=== PATIENT | female | born 1975 | race Caucasian/White ===

== ENCOUNTER → 2016-08-01 | Outpatient (CLI) | payer BC ==
[~2016-08-01] MED LIST: ACET1TAB43 PO; ACHD5005 PO; DOCU100C37 PO; FERR-74 PO; HYDR-3714 PO; IBP600T1 PO; IBUP-1773 PO; OMEP-10 PO; OMEP20CA12 PO; ONDA8TAB6 PO; OXYC-12 PO; PHEN37.555 PO; PRCD5U PO; PREN1TAB39 PO
--- OUTSIDE RECORDS SUMMARY | 2016-08-01 14:48 | XMS REPORT | Continuity of Care Document ---
Author Author [facility] Organization [facility] Address Unknown Phone Unavailable Care Team Providers Care Tobacco Scrap Sifter Name Role Phone Nubia Wong PCP [phone] Source Comments Some departments are not documenting in the electronic medical record. If you do not see the information that you expected, contact Release of Information in the Health Information Management department at [phone] for further assistance in locating additional records.[facility] Active Allergies and Adverse Reactions No Known Allergies Current Medications Prescription Sig. Disp. Refills Start End Date Status Date HYDROcodone-ibuprofen Take 1 Tab by mouth every Active (VICOPROFEN) 7.5-200 mg 6 hours as needed for tablet Pain phentermine(+) 37.5 mg Take 37.5 mg by mouth Active tablet every morning. Take 1/2 daily amoxicillin (AMOXIL) 500 Take 500 mg by mouth four Active mg capsule times daily. pregabalin (LYRICA) 50 mg start one tab po qhs x 1 60 Cap 1 10/07/19 Active capsule week, then up to one tab 16 po bid Indications: FIBROMYALGIA Active Problems Problem Noted Date Fibromyalgia 10/07/2015 Malaise and fatigue 10/07/2015 Pain in joint, multiple sites 10/07/2015 Social History Tobacco Use Types Packs/Day Years Used Date Never Smoker Smokeless Tobacco: Never Used Tobacco Cessation: Counseling Given: No Comments: Alcohol Use Drinks/Week oz/Week Comments No 0 Standard 0.0 drinks or equivalent Last Filed Vital Signs Vital Sign Reading Time Taken Blood Pressure 137/97 10/07/2015 3:14 PM CDT Pulse 71 10/07/2015 3:14 PM CDT Temperature 36.7 C (98 F) 10/07/2015 1:25 PM CDT Respiratory Rate 20 10/07/2015 3:14 PM CDT Height 1.753 m (5' 9.02") 10/07/2015 3:14 PM CDT Weight 79.379 kg (175 lb) 10/07/2015 3:14 PM CDT Body Mass Index 25.83 10/07/2015 3:14 PM CDT Oxygen Saturation 100% 10/07/2015 3:14 PM CDT Plan of Care Health Maintenance Due Date Last Done Comments Physical (Comprehensive) 1982 Exam Pertussis Vaccine 1986 Tetanus Vaccine 1992 Cervical Cancer Screening 1996 Influenza Vaccine 01/14/2016 Results from Last 3 Months Not on file
--- NOTE | 2016-08-01 18:29 | Diagnostic Imaging Report ---
OB ultrasound. INDICATION: survey. FINDINGS: There is a single intrauterine . The heart rate is 144 bpm. The amniotic fluid index is 13.2 cm. The placenta is fundal. There is no placenta previa. The cisterna magna and posterior fossa appear grossly unremarkable. There is no ventriculomegaly seen. The stomach is seen and the kidneys demonstrate no hydronephrosis. The four-chamber view is not well seen due to position. The cord insertion is also not seen due to position. The urinary bladder appears unremarkable. There is suggestion of two umbilical arteries which would correlate with three-vessel cord. The spine appears grossly unremarkable. The growth parameters are from all around 35 weeks and 4 days, which is consistent with a gestational age of 35 weeks and 2 days based on provided KHUSHI of 09/03/2016. We do not have prior comparison exams during this on our system for correlation. IMPRESSION: Live intrauterine . The four-chamber view and the cord insertion are not well seen due to advanced age and position. A short-term followup study could be considered to attempt reevaluation. Dictated by: Dictated on workstation # [id number]
== END ==
LOC: RAD 14:44
PROVIDERS: ATTEND Obstetrics & Gynecology
DX: O09.522 Supervision of elderly multigravida, second trimester (principal); Z3A.35 35 weeks gestation of pregnancy
CPT/HCPCS: 76805

== ENCOUNTER 2016-08-15 10:46 | Outpatient (RCR) | payer BC ==
[~2016-08-15 10:46] MED LIST changes: -ACET1TAB43 PO; -DOCU100C37 PO; -FERR-74 PO
--- NOTE | 2016-08-15 12:11 | Diagnostic Imaging Report ---
Ultrasound biophysical profile. INDICATION: Multigravida. The previous OB ultrasound exam of 08/01/2016, noted a single live fetus approximately 35 weeks 2 days gestation. On this exam the fetus is again visualized. The fetus is cephalic in presentation. heart motion was noted, and a rate of 163 bpm was recorded. The biophysical profile score is 8/8 and within normal limits. On the prior exam the amniotic fluid index was 13.2. On this study the SUSI is now 7.4 (normal 8 to 22.) The reason for the borderline oligohydramnios is not certain. IMPRESSION: 1. There is a single live near-term fetus in cephalic presentation. 2. The biophysical profile score is 8 out of 8. There is borderline oligohydramnios. Dictated by: Dictated on workstation # [id number]
[2016-08-23] MEDS ORDERED: FERR-74 PO (15:29)
[2016-08-23] MEDS ORDERED: IBUP-1773 PO (15:29)
[2016-08-23] MEDS ORDERED: ACET1TAB43 PO (15:29)
[2016-08-23] MEDS ORDERED: DOCU100C37 PO (15:29)
== END 2016-11-13 | disposition home or self-care (01) ==
LOC: RAD 10:46
PROVIDERS: ATTEND Obstetrics & Gynecology
DX: O09.523 Supervision of elderly multigravida, third trimester (principal); O47.03 False labor before 37 completed weeks of gestation, third trimester; Z3A.35 35 weeks gestation of pregnancy
CPT/HCPCS: 76819

== ENCOUNTER 2016-08-23 05:58 | Inpatient (IN) | payer BC ==
[2016-08-23] VITALS (43 sets, daily range): BP systolic 102–176; BP diastolic 67–115
[~2016-08-23] VITALS: Ht 175.3 cm; Wt 92.1 kg
[2016-08-23] MEDS ORDERED: D5 LR IV SOLUTION 1,000 ML IV ONE ×2 (06:05→19:43)
[2016-08-23] MEDS ORDERED: NS IV 1000 ML 1,000 ML IV SCH ×2 (06:25→07:25)
[2016-08-23] MEDS ORDERED: LIDOCAINE/EPI 1%-1:200,000 (XYLOCAINE) 30 ML VIAL INJ PRN (06:30)
[2016-08-23] MEDS ORDERED: MINERAL OIL CONCENTRATE 99.9% 15 ML UDC TOP PRN (06:30)
[2016-08-23] MEDS: D5 LR IV SOLUTION 1,000 ML IV SCH ×3 (06:35→20:00)
[2016-08-23] MEDS ORDERED: MISOPROSTOL 100 MCG (CYTOTEC) TAB PO ONE (06:45)
[2016-08-23 06:59] LABS: BASOPHILS % (AUTO) 0 % (0-10); EOSINOPHILS # (AUTO) 0.1 10^3/uL (0.0-0.3); EOSINOPHILS % (AUTO) 1 % (0-10); LYMPHOCYTES # (AUTO) 3.7 X 10^3 (1.0-4.0); LYMPHOCYTES % (AUTO) 31 % (12-44); MEAN CORPUSCULAR HEMOGLOBIN 28 PG (25-34); MEAN CORPUSCULAR HGB CONC 33 G/DL (32-36); MEAN CORPUSCULAR VOLUME 86 FL (80-99); MEAN PLATELET VOLUME 9.5 FL (7.4-10.4); MONOCYTES # (AUTO) 1.5 X 10^3 (0.0-1.0); MONOCYTES % (AUTO) 12 % (0-12); NEUTROPHILS # (AUTO) 6.7 X 10^3 (1.8-7.8); NEUTROPHILS % (AUTO) 56 % (42-75); PLATELET COUNT 339 10^3/uL (130-400); RED BLOOD COUNT 3.74 10^6/uL (4.35-5.85); RED CELL DISTRIBUTION WIDTH 13.1 % (10.0-14.5)
[2016-08-23 07:49] LABS: BILIRUBIN,URINE NEGATIVE (NEGATIVE); KETONES,URINE NEGATIVE (NEGATIVE); LEUKOCYTE ESTERASE ,URINE 1+ (NEGATIVE); NITRITE,URINE NEGATIVE (NEGATIVE); PH,URINE 7 (5-9); PROTEIN,URINE NEGATIVE (NEGATIVE); UROBILINOGEN,URINE NORMAL (NORMAL)
[2016-08-23 08:03] LABS: SQUAMOUS EPITHELIAL CELL,UR 25-50 /HPF
[2016-08-23] MEDS ORDERED: SUFENTA 0.6MCG/ML BUPIVA 0.125 100 ML ONE (09:31)
[2016-08-23] MEDS ORDERED: BUPIVACAINE 0.25% 30 ML (SENSORCAINE) VIAL ONE (10:05)
[2016-08-23] MEDS ORDERED: fentaNYL INJECTION 100 MCG/2 ML AMP ONE (10:05)
[2016-08-23] MEDS ORDERED: LACTATED RINGERS 1,000 ML IV SCH (11:25)
[2016-08-23] MEDS ORDERED: METOCLOPRAMIDE INJ 10 MG/2 ML (REGLAN) IV PRN (11:30)
[2016-08-23] MEDS ORDERED: ONDANSETRON 4 MG/2 ML (SDV) Z0FRAN IV PRN (11:30)
[2016-08-23] MEDS ORDERED: diphenhydrAMINE 50 MG/ML INJ (BENADRYL) IV PRN (11:30)
[2016-08-23] MEDS ORDERED: NALOXONE 0.4 MG/ML 1 ML (NARCAN) VIAL IV PRN ×2 (11:30)
[2016-08-23] MEDS ORDERED: EPIDURAL (SUFENTA 0.6MCG/ML BUPIVA 0.125%) 100 ML BAG EPI PRN (11:30)
[2016-08-23] MEDS ORDERED: OXYTOCIN/NORMAL SALINE 500 ML IV SCH ×2 (11:49→15:09)
[2016-08-23] MEDS ORDERED: CATHETER FLUSH 10 ML SYR IV SCH ×2 (14:00→22:00)
[2016-08-23] MEDS ORDERED: MEASLES,MUMPS,RUBELLA 1 EA INJ SQ ONE (15:15)
[2016-08-23] MEDS ORDERED: WITCH HAZEL(TUCKS) 40 EA JAR TOP PRN (15:15)
[2016-08-23] MEDS ORDERED: TETANUS,DIPTH,PERTUSS P/F (BOOSTRIX) 0.5 ML VIAL IM ONE (15:15)
[2016-08-23] MEDS ORDERED: BENZOCAINE/MENTHOL (DERMOPLAST) 56 ML CAN TP PRN (15:15)
[2016-08-23] MEDS ORDERED: DIBUCAINE (NUPERCAINAL) 1% OINT 30 GM TOP PRN (15:15)
--- NOTE | 2016-08-23 15:19 | OB Labor & Delivery Record ---
Vag Delivery Note Vag Delivery Note Date of Delivery: 08/23/16 Preoperative Diagnosis: Mildred Avalos is a 41 /Para 3/2 ,Gestational Age38 3/7 weeks, PUPPPS, Advanced maternal age, oligohydramnios, gestational hypertension Postoperative Diagnosis: Same Surgeon: CHECO FRAGOSO Assistant Editor: Nena López MS IV Anesthesia: epidural Delivery Type: vaginal Findings: Viable male , apgars 8/9, weight 7#8oz Lacerations: Intact placenta with 3 vessel cord. No nuchal cord, body cord or shoulder dystocia Estimated Blood Loss: 200 ml Complications: None Condition: Stable Description of Procedure: The patient is a 41 /Para 3/2 ,Gestational Age38 3/7 weeks, PUPPPS, Advanced maternal age, oligohydramnios, gestational hypertension. She was admitted and informed consent was obtained. Her labor course was remarkable for misoprostol cervical ripening, AROM, epidural and oxytocin augmentation. She progressed to complete dilatation and began to push. She was then set up for delivery. The 's head was delivered atraumatically in the KENYATTA position. The shoulders and remainder of the infant's body were then delivered without difficulty. Upon delivery, the head was held below the level of the perineum and the mouth and nares were bulb suctioned. The cord was doubly clamped and cut and the infant was handed off to the pediatric staff. An intact placenta with 3-vessel cord delivered and there was found to be minimal bleeding.~ Vigorous fundal massage was performed and the fundus was found to be firm. IV oxytocin was given. Examination of the vagina and perineum revealed a 1st deg laceration not repaired. Following the repair, sponge, instrument and needle counts were correct. Mom and baby were both in stable condition in the labor suite. Vitals - Labs Vital Signs - I&O Vital Signs Date Time Temp Pulse Resp B/P (MAP) Pulse Ox O2 Delivery O2 Flow Rate FiO2 08/23/16 13:53 101 18 139/78 Room Air 08/23/16 13:40 90 18 123/75 Room Air 08/23/16 13:25 96 18 130/74 Room Air 08/23/16 13:15 88 18 132/77 Room Air 08/23/16 12:52 92 18 122/79 Room Air 08/23/16 12:40 93 18 121/74 Room Air 08/23/16 12:30 97.2 08/23/16 12:22 105 18 132/79 99 Room Air 08/23/16 12:08 100 18 131/79 99 Room Air 08/23/16 11:38 92 18 128/69 98 Room Air 08/23/16 11:22 96 18 123/69 98 Room Air 08/23/16 11:00 106 18 132/75 98 Room Air 08/23/16 10:53 105 18 131/76 98 Room Air 08/23/16 10:48 102 18 125/74 98 Room Air 08/23/16 10:45 106 18 136/84 97 Room Air 08/23/16 10:33 115 18 138/83 97 Room Air 08/23/16 10:30 99.2 100 18 135/84 Room Air 08/23/16 10:27 91 18 138/88 99 Room Air 08/23/16 10:22 93 18 151/89 98 Room Air 08/23/16 10:18 84 18 156/96 99 Room Air 08/23/16 10:15 88 18 176/101 Room Air 08/23/16 10:00 08/23/16 09:30 78 18 167/97 Room Air 08/23/16 09:00 08/23/16 08:30 76 18 141/85 08/23/16 07:31 99.0 90 18 160/90 Room Air 08/23/16 06:06 90 18 136/87 Room Air Labs Laboratory Tests 08/23/16 06:00: Urine Color YELLOW, Urine Clarity CLEAR, Urine pH 7, Urine Specific [place] 1.015L, Urine Protein NEGATIVE, Urine Glucose (UA) NEGATIVE, Urine Ketones NEGATIVE, Urine Nitrite NEGATIVE, Urine Bilirubin NEGATIVE, Urine Urobilinogen NORMAL, Urine Leukocyte Esterase 1+H, Urine RBC (Auto) 1+H, Urine RBC 5-10H, Urine WBC 2-5, Urine Squamous Epithelial Cells 25-50H, Urine Crystals PRESENTH, Urine Amorphous Sediment RARE NANCY PHOSPHATEH, Urine Bacteria MODERATEH, Urine Casts NONE, Urine Mucus SMALLH, Urine Culture Indicated NO 08/23/16 06:50: White Blood Count 12.0H, Red Blood Count 3.74L, Hemoglobin 10.6L, Hematocrit 32L , Mean Corpuscular Volume 86, Mean Corpuscular Hemoglobin 28, Mean Corpuscular Hemoglobin Concent 33, Red Cell Distribution Width 13.1, Platelet Count 339, Mean Platelet Volume 9.5, Neutrophils (%) (Auto) 56, Lymphocytes (%) (Auto) 31, Monocytes (%) (Auto) 12, Eosinophils (%) (Auto) 1, Basophils (%) (Auto) 0, Neutrophils # (Auto) 6.7, Lymphocytes # (Auto) 3.7, Monocytes # (Auto) 1.5H, Eosinophils # (Auto) 0.1, Basophils # (Auto) 0.0 CHECO FRAGOSO DO Aug 23, 2016 15:19
[2016-08-23] MEDS ORDERED: ACET1TAB43 PO ×2 (15:29)
[2016-08-23] MEDS ORDERED: DOCU100C37 PO ×2 (15:29)
[2016-08-23] MEDS ORDERED: IBUP-1773 PO ×2 (15:29)
[2016-08-23] MEDS ORDERED: FERR-74 PO ×2 (15:29)
--- NOTE | 2016-08-23 15:32 | Discharge Inst-Women's Service ---
Discharge Inst-Women's Serv Depart Medication/Instructions New, Converted or Re-Newed RX: RX on Chart Final Diagnosis PUPPPS Mild oligohydramnios Advanced maternal age induction Epidural Vaginal delivery iron deficiency anemia Consults/Follow Up Additional Follow Up: Yes (2 weeks and 6 weeks) Activity Activity: Activity as Tolerated Driving Instructions: You May Drive NO SMOKING: NO SMOKING Nothing Inside Vagina: No Douching, No [place], No Tampons Diet Discharge Diet: No Restrictions Symptoms to Report to : Swelling Increased, Bleeding Excessive, Pain Increased, Fever Over 101 Degrees F, Vaginal Bleeding Increase, Vaginal Discharge Foul For Any Problems or Questions: Contact Your Physician CHECO FRAGOSO DO Aug 23, 2016 15:32
[2016-08-23] MEDS: IBUPROFEN 600 MG (MOTRIN) TAB PO SCH (15:50)
[2016-08-23] MEDS ORDERED: diphenhydrAMINE 25 MG TAB (BENADRYL) PO PRN (17:00)
[2016-08-23] MEDS ORDERED: MISOPROSTOL 200 MCG (CYTOTEC) TABLET ONE (18:20)
[2016-08-23] MEDS ORDERED: MISOPROSTOL 200 MCG (CYTOTEC) TABLET PR NR (18:30)
[2016-08-23] MEDS ORDERED: NS IV 1000 ML 1,000 ML ONE (18:33)
[2016-08-23 18:49] LABS: MEAN PLATELET VOLUME 10.1 FL (7.4-10.4); RED BLOOD COUNT 3.08 10^6/uL (4.35-5.85); RED CELL DISTRIBUTION WIDTH 12.9 % (10.0-14.5); WHITE BLOOD COUNT 22.7 10^3/uL (4.3-11.0)
[2016-08-23 18:58] LABS: INR 1.1 (0.8-1.4); PROTHROMBIN TIME PATIENT 14.1 SEC (12.2-14.7)
[2016-08-23] MEDS ORDERED: hydrOXYzine (ATARAX) 10 MG TAB PO PRN (19:00)
--- NOTE | 2016-08-23 19:01 | Inpatient Code Blue ---
General Stated Complaint: INDUCTION Source: patient, RN/MD Exam Limitations: no limitations History of Present Illness Time seen by provider: 18:40 Initial Comments called emergently to room 312 for CODE BLUE. On my arrival. Patient was breathing and awake. Nurse describes episode where patient became very weak and then apparently passed out and had a seizure. There is concerns about breathing and vital signs and code was called. Patient had delivered via vaginal delivery 3 hours prior. She had approximately 300 mL blood loss per report during delivery +1100 mL blood loss after delivery. Apparently the uterus was very boggy and Cytotec was given rectally. Onset of symptoms when she was trying to sit up to be cleaned with nursing assistance. Patient was laid back down in the bed and there is no injury noted or reported. Currently patient is improving rapidly. Her primary care physician, Dr. Fragoso is in route. Allergies and Home Medications Allergies Coded Allergies: No Known Drug Allergies (Unverified , 06/20/10) Home Medications Acetaminophen with Codeine 1 Each Tablet, 1-2 TAB PO Q4H PRN for PAIN-MODERATE, #20 Prescribed by: CHECO FRAGOSO on 08/23/16 1529 Docusate Sodium 100 Mg Capsule, 100 MG PO BID, #60 Prescribed by: CHECO FRAGOSO on 08/23/16 1529 Ferrous Sulfate 325 Mg Tablet, 325 MG PO DAILY, #60 Prescribed by: CHECO FRAGOSO on 08/23/16 1529 Ibuprofen 600 Mg Tablet, 600 MG PO Q6H, #40 Prescribed by: CHECO FRAGOSO on 08/23/16 1529 Physical Exam Vital Signs Vital Sign - Last 12Hours 08/23/16 08/23/16 08/23/16 06:06 07:31 10:18 Temp 99.0 Pulse 90 Resp 18 B/P (MAP) 136/87 Pulse Ox 99 O2 Delivery Room Air Capillary Refill : General Appearance: WD/WN, no apparent distress Respiratory: lungs clear, normal breath sounds Cardiovascular: no murmur, tachycardia Gastrointestinal: soft, other (uterus noted to be firm.) Genital/Rectal: other (Robins catheter in place. No significant vaginal bleeding currently.) Neurologic/Psychiatric: alert, oriented x 3, other (rapidly improving mentation ) Skin: normal color, warm/dry Progress/Results/Core Measures Results/Orders Lab Results Laboratory Tests Test 08/23/16 06:00 08/23/16 06:50 08/23/16 18:41 Range/Units Urine Color YELLOW Urine Clarity CLEAR Urine pH 7 5-9 Urine Specific [place] 1.015 L 1.016-1.022 Urine Protein NEGATIVE NEGATIVE Urine Glucose (UA) NEGATIVE NEGATIVE Urine Ketones NEGATIVE NEGATIVE Urine Nitrite NEGATIVE NEGATIVE Urine Bilirubin NEGATIVE NEGATIVE Urine Urobilinogen NORMAL NORMAL MG/DL Urine Leukocyte Esterase 1+ H NEGATIVE Urine RBC (Auto) 1+ H NEGATIVE Urine RBC 5-10 H /HPF Urine WBC 2-5 /HPF Urine Squamous Epithelial Cells 25-50 H /HPF Urine Crystals PRESENT H /LPF Urine Amorphous Sediment RARE NANCY PHOSPHATE H /LPF Urine Bacteria MODERATE H /HPF Urine Casts NONE /LPF Urine Mucus SMALL H /LPF Urine Culture Indicated NO White Blood Count 12.0 H 22.7 H 4.3-11.0 10^3/uL Red Blood Count 3.74 L 3.08 L 4.35-5.85 10^6/uL Hemoglobin 10.6 L 8.8 L 11.5-16.0 G/DL Hematocrit 32 L 27 L 35-52 % Mean Corpuscular Volume 86 87 80-99 FL Mean Corpuscular Hemoglobin 28 29 25-34 PG Mean Corpuscular Hemoglobin Concent 33 33 32-36 G/DL Red Cell Distribution Width 13.1 12.9 10.0-14.5 % Platelet Count 339 330 130-400 10^3/uL Mean Platelet Volume 9.5 10.1 7.4-10.4 FL Neutrophils (%) (Auto) 56 42-75 % Lymphocytes (%) (Auto) 31 12-44 % Monocytes (%) (Auto) 12 0-12 % Eosinophils (%) (Auto) 1 0-10 % Basophils (%) (Auto) 0 0-10 % Neutrophils # (Auto) 6.7 1.8-7.8 X 10^3 Lymphocytes # (Auto) 3.7 1.0-4.0 X 10^3 Monocytes # (Auto) 1.5 H 0.0-1.0 X 10^3 Eosinophils # (Auto) 0.1 0.0-0.3 10^3/uL Basophils # (Auto) 0.0 0.0-0.1 10^3/uL Medications Given in ED Current Medications Medications Dose Ordered Sig/Aj Route Start Time Stop Time Status Last Admin Dose Admin Diphenhydramine HCl 25 mg Q6H PRN PO 08/23/16 17:00 08/23/16 17:10 25 MG Vital Signs/I&O Vital Sign - Last 12Hours 08/23/16 08/23/16 08/23/16 08/23/16 06:06 07:31 08:30 09:00 Temp 99.0 Pulse 90 90 76 Resp 18 18 18 B/P (MAP) 136/87 160/90 141/85 O2 Delivery Room Air Room Air 08/23/16 08/23/16 08/23/16 08/23/16 09:30 10:00 10:15 10:18 Pulse 78 88 84 Resp 18 18 18 B/P (MAP) 167/97 176/101 156/96 Pulse Ox 99 O2 Delivery Room Air Room Air Room Air 08/23/16 08/23/16 08/23/16 08/23/16 10:22 10:27 10:30 10:33 Temp 99.2 Pulse 93 91 100 115 Resp 18 18 18 18 B/P (MAP) 151/89 138/88 135/84 138/83 Pulse Ox 98 99 97 O2 Delivery Room Air Room Air Room Air Room Air 08/23/16 08/23/16 08/23/16 08/23/16 10:45 10:48 10:53 11:00 Pulse 106 102 105 106 Resp 18 18 18 18 B/P (MAP) 136/84 125/74 131/76 132/75 Pulse Ox 97 98 98 98 O2 Delivery Room Air Room Air Room Air Room Air 08/23/16 08/23/16 08/23/16 08/23/16 11:22 11:38 12:08 12:22 Pulse 96 92 100 105 Resp 18 18 18 18 B/P (MAP) 123/69 128/69 131/79 132/79 Pulse Ox 98 98 99 99 O2 Delivery Room Air Room Air Room Air Room Air 08/23/16 08/23/16 08/23/16 08/23/16 12:30 12:40 12:52 13:15 Temp 97.2 Pulse 93 92 88 Resp 18 18 18 B/P (MAP) 121/74 122/79 132/77 O2 Delivery Room Air Room Air Room Air 08/23/16 08/23/16 08/23/16 08/23/16 13:25 13:40 13:53 14:10 Pulse 96 90 101 91 Resp 18 18 18 18 B/P (MAP) 130/74 123/75 139/78 136/85 O2 Delivery Room Air Room Air Room Air Room Air 08/23/16 08/23/16 08/23/16 08/23/16 14:22 14:40 14:55 15:04 Temp 97.9 Pulse 97 100 112 96 Resp 18 18 18 18 B/P (MAP) 126/81 130/78 163/115 127/74 O2 Delivery Room Air Room Air Room Air Room Air 08/23/16 08/23/16 08/23/16 08/23/16 15:20 15:34 15:49 16:30 Temp 97.3 99.4 Pulse 99 85 85 104 Resp 18 18 18 20 B/P (MAP) 152/87 130/78 124/76 138/83 O2 Delivery Room Air Room Air Room Air Room Air Blood Pressure Mean: 101 Progress Note : Progress Note Seen and evaluated on arrival to room. Patient with rapidly improving mentation. Vital signs normal with the exception of mild tachycardia on arrival. O2 sat 100 percent on nonrebreather. Orders for additional IV as well as postcode labs and DIC panel given. Dr. Fragoso arrives shortly after my arrival. Patient's uterus is firm and well. Orders for type and cross for 2 units. 1855: Dr. Fragoso assumed care of patient. Impression of syncopal episode with rapid return to normal mentation after lying supine and with instillation of fluids. Plan is to continue IV fluids and blood transfusion per Dr. Fragoso based on data. Family informed and agrees. Patient agrees to plan as well. Clinical Quality Measures DVT/VTE Risk/Contraindication: Risk Factor Score Per Nursin RFS Level Per Nursing on Admit: 1=Low/No VTE PPX TYSHAWN JAMES MD Aug 23, 2016 19:01
[2016-08-23 19:09] LABS: ALANINE AMINOTRANSFERASE < 6 U/L (0-55); ALBUMIN 2.4 G/DL (3.2-4.5); ANION GAP 9 MMOL/L (5-14); ASPARTATE AMINO TRANSFERASE 11 U/L (5-34); BILIRUBIN,TOTAL 0.4 MG/DL (0.1-1.0); BLOOD UREA NITROGEN 9 MG/DL (7-18); BUN/CREATININE RATIO 13; CALCIUM 7.6 MG/DL (8.5-10.1); CARBON DIOXIDE 19 MMOL/L (21-32); CHLORIDE 112 MMOL/L (98-107); CREATININE SERUM 0.68 MG/DL (0.60-1.30); GFR ESTIMATED > 60; GLUCOSE 104 MG/DL (70-105); MAGNESIUM 1.2 MG/DL (1.8-2.4); POTASSIUM 3.4 MMOL/L (3.6-5.0); SODIUM 140 MMOL/L (135-145); TOTAL PROTEIN 4.8 G/DL (6.4-8.2)
[2016-08-23 19:15] LABS: TROPONIN I < 0.30 NG/ML (<0.30)
--- NOTE | 2016-08-23 19:18 | Progress Note-Standard ---
Standard Progress Note Progress Notes/Assess & Plan Progress/Assessment & Plan 1900 patient delivered at approximately 1450 today. this was an uncomplicated delivery. She had approximately 200 mL of blood loss at delivery. She had no retained products and placenta was intact. Her uterus was firm after delivery. Laceration that was not repaired. She had an uncomplicated course in the delivery room and she was moved to the room. She had received her normal oxytocin. The nurse states that after she had been moved to room and they did leonardo-care she noticed an increase in bleeding and had approximately 1100 mL of clotted blood on her chucks. her uterus however didn' t seem contracted. They called me at 1617 and I asked the nurse to have a Robins catheter placed to make sure her uterus is contracted and give her 800 g of [place] misoprostol. I was on my way to the hospital when I received another phone call at approximately 1635 and was told, "they're codeine your patient". I arrived at the hospital approximately 4 minutes later and was told the patient was awake and talking. A code/rapid response had been called and the ED doctor, Dr. Deng, was present. The patient was lying in bed and was pale but awake and could recall the incidents that occurred. She was on a NRB mask and this was changed to NC. Her vitals stable (BP 100/60, P 100, O2 100). She had apparently been sat up by the RN to clean and change her gown when she felt lightheaded and said "I am going to pass out". She then passed out and then RN was concerned she was having a seizure. At no time did she stop breathing or did her heart stop. Labs were drawn and DIC panel drawn. Those are currently pending. Patient is currently stable. Uterus is firm. Robins is draining clear yellow urine. Vaginal exam reveals no clotted blood in uterus and a small amount in the vagina. Labs are pending but she is crossed for 2 units of blood. IV fluids are flowing freely and the second bag of pitocin (30 units). Will give methergine and/or misoprostol if needed. Will consider blood transfusion as needed. Patient currently does not wish to sit up but states she feels ok at this time. CHECO FRAGOSO DO Aug 23, 2016 19:18
[2016-08-23] MEDS ORDERED: ONDANSETRON 4 MG/2 ML (SDV) Z0FRAN IVP PRN (19:30)
[2016-08-23] MEDS: DOCUSATE SODIUM 100 MG (COLACE) CAP PO SCH (21:00)
[2016-08-23] MEDS: hydrOXYzine (VISTARIL) 25 MG CAP PO PRN (21:38)
[2016-08-23] MEDS: METHYLERGONOVINE 0.2 MG (MEHTERGINE) TAB PO SCH (22:43)
[2016-08-24] VITALS (9 sets, daily range): BP systolic 110–123; BP diastolic 69–83
[2016-08-24 00:07] LABS: MEAN PLATELET VOLUME 9.6 FL (7.4-10.4); RED BLOOD COUNT 2.68 10^6/uL (4.35-5.85); RED CELL DISTRIBUTION WIDTH 12.6 % (10.0-14.5); WHITE BLOOD COUNT 14.4 10^3/uL (4.3-11.0)
[2016-08-24] MEDS: IBUPROFEN 600 MG (MOTRIN) TAB PO SCH ×4 (00:58→18:25)
[2016-08-24] MEDS: APAP 300 MG/CODEINE 30 MG (TYLENOL #3) TAB PO PRN ×3 (04:17→20:54)
[2016-08-24] MEDS: D5 LR IV SOLUTION 1,000 ML IV SCH (04:17)
[2016-08-24] MEDS: METHYLERGONOVINE 0.2 MG (MEHTERGINE) TAB PO SCH ×3 (06:31→18:25)
[2016-08-24 06:49] LABS: BASOPHILS % (AUTO) 0 % (0-10); EOSINOPHILS # (AUTO) 0.2 10^3/uL (0.0-0.3); EOSINOPHILS % (AUTO) 1 % (0-10); LYMPHOCYTES # (AUTO) 3.7 X 10^3 (1.0-4.0); LYMPHOCYTES % (AUTO) 27 % (12-44); MEAN CORPUSCULAR HEMOGLOBIN 28 PG (25-34); MEAN CORPUSCULAR HGB CONC 32 G/DL (32-36); MEAN CORPUSCULAR VOLUME 88 FL (80-99); MONOCYTES # (AUTO) 1.3 X 10^3 (0.0-1.0); MONOCYTES % (AUTO) 9 % (0-12); NEUTROPHILS # (AUTO) 8.5 X 10^3 (1.8-7.8); NEUTROPHILS % (AUTO) 62 % (42-75); PLATELET COUNT 285 10^3/uL (130-400); RED BLOOD COUNT 2.83 10^6/uL (4.35-5.85); RED CELL DISTRIBUTION WIDTH 12.9 % (10.0-14.5); WHITE BLOOD COUNT 13.7 10^3/uL (4.3-11.0)
[2016-08-24] MEDS: DOCUSATE SODIUM 100 MG (COLACE) CAP PO SCH ×2 (08:10→20:54)
[2016-08-24] MEDS: FERROUS SULF 325 MG (IRON) TAB PO SCH (08:10)
[2016-08-24] MEDS: PRENATAL VITAMIN 1 EA TAB PO SCH (08:10)
--- NOTE | 2016-08-24 08:12 | Postpartum Progress Note ---
Note Note Day # 1 Subjective: Patient is without complaints. Ambulated with RN and felt dizzy and lightheaded. Has not yet voided after fernandez removed (placed following hemorrhage yesterday). Tolerating a regular diet without nausea or vomiting. Normal lochia. Pain is well controlled with oral pain medications. Breast pumping/feeding. spent night in nursery. Objective: VS - Last 72 Hours, by Label 08/23/16 08/23/16 08/23/16 08/23/16 06:06 07:31 08:30 09:00 Temp 99.0 Pulse 90 90 76 Resp 18 18 18 B/P (MAP) 136/87 160/90 141/85 O2 Delivery Room Air Room Air 08/23/16 08/23/16 08/23/16 08/23/16 09:30 10:00 10:15 10:18 Pulse 78 88 84 Resp 18 18 18 B/P (MAP) 167/97 176/101 156/96 Pulse Ox 99 O2 Delivery Room Air Room Air Room Air 08/23/16 08/23/16 08/23/16 08/23/16 10:22 10:27 10:30 10:33 Temp 99.2 Pulse 93 91 100 115 Resp 18 18 18 18 B/P (MAP) 151/89 138/88 135/84 138/83 Pulse Ox 98 99 97 O2 Delivery Room Air Room Air Room Air Room Air 08/23/16 08/23/16 08/23/16 08/23/16 10:45 10:48 10:53 11:00 Pulse 106 102 105 106 Resp 18 18 18 18 B/P (MAP) 136/84 125/74 131/76 132/75 Pulse Ox 97 98 98 98 O2 Delivery Room Air Room Air Room Air Room Air 08/23/16 08/23/16 08/23/16 08/23/16 11:22 11:38 12:08 12:22 Pulse 96 92 100 105 Resp 18 18 18 18 B/P (MAP) 123/69 128/69 131/79 132/79 Pulse Ox 98 98 99 99 O2 Delivery Room Air Room Air Room Air Room Air 08/23/16 08/23/16 08/23/16 08/23/16 12:30 12:40 12:52 13:15 Temp 97.2 Pulse 93 92 88 Resp 18 18 18 B/P (MAP) 121/74 122/79 132/77 O2 Delivery Room Air Room Air Room Air 08/23/16 08/23/16 08/23/16 08/23/16 13:25 13:40 13:53 14:10 Pulse 96 90 101 91 Resp 18 18 18 18 B/P (MAP) 130/74 123/75 139/78 136/85 O2 Delivery Room Air Room Air Room Air Room Air 08/23/16 08/23/16 08/23/16 08/23/16 14:22 14:40 14:55 15:04 Temp 97.9 Pulse 97 100 112 96 Resp 18 18 18 18 B/P (MAP) 126/81 130/78 163/115 127/74 O2 Delivery Room Air Room Air Room Air Room Air 08/23/16 08/23/16 08/23/16 08/23/16 15:20 15:34 15:49 16:30 Temp 97.3 99.4 Pulse 99 85 85 104 Resp 18 18 18 20 B/P (MAP) 152/87 130/78 124/76 138/83 O2 Delivery Room Air Room Air Room Air Room Air 08/23/16 08/23/16 08/23/16 08/23/16 18:10 18:25 18:33 18:36 Pulse 114 109 69 96 Resp 20 20 18 14 B/P (MAP) 142/81 115/70 139/96 126/86 Pulse Ox 100 100 O2 Delivery Room Air Room Air Room Air Room Air 08/23/16 08/23/16 08/23/16 08/23/16 18:50 19:00 19:35 20:22 Temp 98.4 Pulse 89 89 93 99 Resp 16 16 16 18 B/P (MAP) 119/71 118/80 140/81 130/86 Pulse Ox 100 100 100 100 O2 Delivery Room Air Room Air Nasal Cannula Room Air O2 Flow Rate 2.00 08/23/16 08/23/16 08/24/16 08/24/16 21:30 22:43 00:58 04:17 Temp 98.8 97.8 97.8 Pulse 92 90 83 88 Resp 16 16 18 18 B/P (MAP) 105/67 102/69 116/72 116/75 Pulse Ox 99 98 98 98 O2 Delivery Room Air Room Air Room Air Room Air Physical Exam: General - Alert and oriented, no apparent distress Abdomen - Soft, appropriately tender to palpation, non-distended, fundus firm at umbilicus Extremities - no edema, negative Inna's bilaterally Laboratory Tests Test 08/23/16 18:41 08/23/16 23:45 08/24/16 06:25 Range/Units White Blood Count 22.7 H 14.4 H 13.7 H 4.3-11.0 10^3/uL Red Blood Count 3.08 L 2.68 L 2.83 L 4.35-5.85 10^6/uL Hemoglobin 8.8 L 7.7 L 7.9 L 11.5-16.0 G/DL Hematocrit 27 L 23 L 25 L 35-52 % Mean Corpuscular Volume 87 87 88 80-99 FL Mean Corpuscular Hemoglobin 29 29 28 25-34 PG Mean Corpuscular Hemoglobin Concent 33 33 32 32-36 G/DL Red Cell Distribution Width 12.9 12.6 12.9 10.0-14.5 % Platelet Count 330 284 285 130-400 10^3/uL Mean Platelet Volume 10.1 9.6 10.0 7.4-10.4 FL Prothrombin Time 14.1 12.2-14.7 SEC INR Comment 1.1 0.8-1.4 Activated Partial Thromboplast Time 23 L 24-35 SEC Fibrinogen 295 221-496 MG/DL D-Dimer 1.96 H 0.00-0.49 UG/ML Sodium Level 140 135-145 MMOL/L Potassium Level 3.4 L 3.6-5.0 MMOL/L Chloride Level 112 H 98-107 MMOL/L Carbon Dioxide Level 19 L 21-32 MMOL/L Anion Gap 9 5-14 MMOL/L Blood Urea Nitrogen 9 7-18 MG/DL Creatinine 0.68 0.60-1.30 MG/DL Estimat Glomerular Filtration Rate > 60 BUN/Creatinine Ratio 13 Glucose Level 104 70-105 MG/DL Calcium Level 7.6 L 8.5-10.1 MG/DL Magnesium Level 1.2 L 1.8-2.4 MG/DL Total Bilirubin 0.4 0.1-1.0 MG/DL Aspartate Amino Transf (AST/SGOT) 11 5-34 U/L Alanine Aminotransferase (ALT/SGPT) < 6 0-55 U/L Alkaline Phosphatase 87 40-136 U/L Troponin I < 0.30 <0.30 NG/ML Total Protein 4.8 L 6.4-8.2 G/DL Albumin 2.4 L 3.2-4.5 G/DL Neutrophils (%) (Auto) 62 42-75 % Lymphocytes (%) (Auto) 27 12-44 % Monocytes (%) (Auto) 9 0-12 % Eosinophils (%) (Auto) 1 0-10 % Basophils (%) (Auto) 0 0-10 % Neutrophils # (Auto) 8.5 H 1.8-7.8 X 10^3 Lymphocytes # (Auto) 3.7 1.0-4.0 X 10^3 Monocytes # (Auto) 1.3 H 0.0-1.0 X 10^3 Eosinophils # (Auto) 0.2 0.0-0.3 10^3/uL Basophils # (Auto) 0.0 0.0-0.1 10^3/uL Assessment: 41 y/o post- day # 1, status post spontaneous vaginal delivery after early term IOL. PUPPs Recovering well, hemodynamically stable Elevated BPs hemorrhage Hgb 10.6 --> 7.9 (stable, was 7.7 last evening) Plan: Routine care. Given symptoms, although decrease in Hgb not dramatic, will transfuse 2units pRBCs (were held last night in anticipation of possible transfusion) Reviewed chart, elevated BPs noted back to 2014. Likely cHTN. No si/sx super- imposed pre-eclampsia. No indication for magnesium sulfate therapy at this time. Encourage breast feeding. Encourage ambulation. Ferrous sulfate supplementation. Plan for discharge tomorrow if stable, ordered repeat CBC for AM Vitals - Labs Vital Signs - I&O Vital Signs Date Time Temp Pulse Resp B/P (MAP) Pulse Ox O2 Delivery O2 Flow Rate FiO2 08/24/16 04:17 97.8 88 18 116/75 98 Room Air 08/24/16 00:58 97.8 83 18 116/72 98 Room Air 08/23/16 22:43 90 16 102/69 98 Room Air 08/23/16 21:30 98.8 92 16 105/67 99 Room Air 08/23/16 20:22 99 18 130/86 100 Room Air 08/23/16 19:35 98.4 93 16 140/81 100 Nasal Cannula 2.00 4/11/17 19:00 89 16 118/80 100 Room Air 08/23/16 18:50 89 16 119/71 100 Room Air 08/23/16 18:36 96 14 126/86 100 Room Air 08/23/16 18:33 69 18 139/96 100 Room Air 08/23/16 18:25 109 20 115/70 Room Air 08/23/16 18:10 114 20 142/81 Room Air 08/23/16 16:30 99.4 104 20 138/83 Room Air 08/23/16 15:49 85 18 124/76 Room Air 08/23/16 15:34 85 18 130/78 Room Air 08/23/16 15:20 97.3 99 18 152/87 Room Air 08/23/16 15:04 97.9 96 18 127/74 Room Air 08/23/16 14:55 112 18 163/115 Room Air 08/23/16 14:40 100 18 130/78 Room Air 08/23/16 14:22 97 18 126/81 Room Air 08/23/16 14:10 91 18 136/85 Room Air 08/23/16 13:53 101 18 139/78 Room Air 08/23/16 13:40 90 18 123/75 Room Air 08/23/16 13:25 96 18 130/74 Room Air 08/23/16 13:15 88 18 132/77 Room Air 08/23/16 12:52 92 18 122/79 Room Air 08/23/16 12:40 93 18 121/74 Room Air 08/23/16 12:30 97.2 08/23/16 12:22 105 18 132/79 99 Room Air 08/23/16 12:08 100 18 131/79 99 Room Air 08/23/16 11:38 92 18 128/69 98 Room Air 08/23/16 11:22 96 18 123/69 98 Room Air 08/23/16 11:00 106 18 132/75 98 Room Air 08/23/16 10:53 105 18 131/76 98 Room Air 08/23/16 10:48 102 18 125/74 98 Room Air 08/23/16 10:45 106 18 136/84 97 Room Air 08/23/16 10:33 115 18 138/83 97 Room Air 08/23/16 10:30 99.2 100 18 135/84 Room Air 08/23/16 10:27 91 18 138/88 99 Room Air 08/23/16 10:22 93 18 151/89 98 Room Air 08/23/16 10:18 84 18 156/96 99 Room Air 08/23/16 10:15 88 18 176/101 Room Air 08/23/16 10:00 08/23/16 09:30 78 18 167/97 Room Air 08/23/16 09:00 08/23/16 08:30 76 18 141/85 I & O 08/24/16 07:00 Intake Total 5850 ml Output Total 2150 ml Balance 3700 ml Labs Laboratory Tests 08/23/16 18:41: White Blood Count 22.7H, Red Blood Count 3.08L, Hemoglobin 8.8L, Hematocrit 27L , Mean Corpuscular Volume 87, Mean Corpuscular Hemoglobin 29, Mean Corpuscular Hemoglobin Concent 33, Red Cell Distribution Width 12.9, Platelet Count 330, Mean Platelet Volume 10.1, Prothrombin Time 14.1, INR Comment 1.1, Activated Partial Thromboplast Time 23L, Fibrinogen 295, D-Dimer 1.96H, Sodium Level 140, Potassium Level 3.4L, Chloride Level 112H, Carbon Dioxide Level 19L, Anion Gap 9 , Blood Urea Nitrogen 9, Creatinine 0.68, Estimat Glomerular Filtration Rate > 60, BUN/Creatinine Ratio 13, Glucose Level 104, Calcium Level 7.6L, Magnesium Level 1.2L, Total Bilirubin 0.4, Aspartate Amino Transf (AST/SGOT) 11, Alanine Aminotransferase (ALT/SGPT) < 6, Alkaline Phosphatase 87, Troponin I < 0.30, Total Protein 4.8L, Albumin 2.4L 08/23/16 23:45: White Blood Count 14.4H, Red Blood Count 2.68L, Hemoglobin 7.7L, Hematocrit 23L , Mean Corpuscular Volume 87, Mean Corpuscular Hemoglobin 29, Mean Corpuscular Hemoglobin Concent 33, Red Cell Distribution Width 12.6, Platelet Count 284, Mean Platelet Volume 9.6 08/24/16 06:25: White Blood Count 13.7H, Red Blood Count 2.83L, Hemoglobin 7.9L, Hematocrit 25L , Mean Corpuscular Volume 88, Mean Corpuscular Hemoglobin 28, Mean Corpuscular Hemoglobin Concent 32, Red Cell Distribution Width 12.9, Platelet Count 285, Mean Platelet Volume 10.0, Neutrophils (%) (Auto) 62, Lymphocytes (%) (Auto) 27 , Monocytes (%) (Auto) 9, Eosinophils (%) (Auto) 1, Basophils (%) (Auto) 0, Neutrophils # (Auto) 8.5H, Lymphocytes # (Auto) 3.7, Monocytes # (Auto) 1.3H, Eosinophils # (Auto) 0.2, Basophils # (Auto) 0.0 CITLALLI WASHINGTON MD Aug 24, 2016 08:12
[2016-08-24] MEDS ORDERED: NS IV 500 ML 500 ML ONE (09:51)
--- NOTE | 2016-08-24 12:10 | Anesthesia-Regional Post-Op ---
Regional Patient Condition Mental Status: Alert, Oriented x3 Circulation: Same as Pre-Op Headache: Absent Sensation: Full Recovery Motor Block: Absent Post Op Complications Complications None Follow Up Care/Instructions Patient Instructions None needed. Anesthesia/Patient Condition Patient is doing well, no complaints, stable vital signs, no apparent adverse anesthesia problems. No complications reported per nursing. D/C home per [facility] Criteria: No JESSICA ARRINGTON CRNA Aug 24, 2016 12:10
[2016-08-24] MEDS ORDERED: MISOPROSTOL 200 MCG (CYTOTEC) TABLET PR ONE (18:30)
[2016-08-24] MEDS: hydrOXYzine (VISTARIL) 25 MG CAP PO PRN (20:54)
[2016-08-24] MEDS: ACYCLOVIR 400 MG TABLET (ZOVIRAX) PO SCH (20:54)
[2016-08-25] MEDS: IBUPROFEN 600 MG (MOTRIN) TAB PO SCH ×4 (00:04→15:31)
[2016-08-25 00:05] VITALS: BP 107/71
[2016-08-25 05:37] VITALS: BP 111/70
[2016-08-25 06:06] LABS: BASOPHILS % (AUTO) 0 % (0-10); EOSINOPHILS # (AUTO) 0.2 10^3/uL (0.0-0.3); EOSINOPHILS % (AUTO) 2 % (0-10); LYMPHOCYTES # (AUTO) 3.8 X 10^3 (1.0-4.0); LYMPHOCYTES % (AUTO) 36 % (12-44); MEAN CORPUSCULAR HEMOGLOBIN 29 PG (25-34); MEAN CORPUSCULAR HGB CONC 34 G/DL (32-36); MEAN CORPUSCULAR VOLUME 86 FL (80-99); MEAN PLATELET VOLUME 9.6 FL (7.4-10.4); MONOCYTES # (AUTO) 1.1 X 10^3 (0.0-1.0); MONOCYTES % (AUTO) 10 % (0-12); NEUTROPHILS # (AUTO) 5.5 X 10^3 (1.8-7.8); NEUTROPHILS % (AUTO) 52 % (42-75); PLATELET COUNT 270 10^3/uL (130-400); RED BLOOD COUNT 3.22 10^6/uL (4.35-5.85); RED CELL DISTRIBUTION WIDTH 14.1 % (10.0-14.5); WHITE BLOOD COUNT 10.7 10^3/uL (4.3-11.0)
[2016-08-25] MEDS: DOCUSATE SODIUM 100 MG (COLACE) CAP PO SCH (10:19)
[2016-08-25] MEDS: ACYCLOVIR 400 MG TABLET (ZOVIRAX) PO SCH (10:19)
[2016-08-25] MEDS: PRENATAL VITAMIN 1 EA TAB PO SCH (10:19)
[2016-08-25] MEDS: FERROUS SULF 325 MG (IRON) TAB PO SCH (10:19)
[2016-08-25 10:21] VITALS: BP 104/61
[2016-08-25 13:39] VITALS: BP 132/77
--- NOTE | 2016-08-25 15:07 | Progress Note-Standard ---
Standard Progress Note Progress Notes/Assess & Plan Progress/Assessment & Plan Subjective: Patient is without complaints. Ready for discharge. Objective: Vital Sign - Last 24 Hours 08/24/16 08/24/16 08/25/16 08/25/16 15:40 18:25 00:05 05:37 Temp 100.1 98.6 97.7 98.2 Pulse 96 95 91 90 Resp 18 18 18 18 B/P (MAP) 110/73 118/76 107/71 111/70 Pulse Ox 98 98 95 97 O2 Delivery Room Air Room Air Room Air 08/25/16 08/25/16 10:21 13:39 Temp 97.9 97.3 Pulse 98 101 Resp 18 18 B/P (MAP) 104/61 132/77 Pulse Ox 97 97 O2 Delivery Room Air Room Air Assessment: 41 y/o post- day # 2, status post spontaneous vaginal delivery after early term IOL. PUPPs Recovering well, hemodynamically stable hemorrhage Hgb (stable) Plan: Routine care. Encourage breast feeding. Encourage ambulation. Ferrous sulfate supplementation. Plan for discharge TARUN DOS SANTOS DO Aug 25, 2016 3:07 pm
[2016-08-25 16:21] VITALS: BP 132/77
== END 2016-08-25 16:21 | disposition home or self-care (01) | DRG 774 ==
LOC: LDRP 05:58
PROVIDERS: ADMIT Obstetrics & Gynecology; ATTEND Obstetrics & Gynecology
PROC: 10E0XZZ Delivery of Products of Conception, External Approach (ICD-10-PCS; principal; 2016-08-23)
DX: O41.03X0 Oligohydramnios, third trimester, not applicable or unspecified (principal); O72.1 Other immediate postpartum hemorrhage; R55 Syncope and collapse; O13.3 Gestational [pregnancy-induced] hypertension without significant proteinuria, third trimester; O26.86 Pruritic urticarial papules and plaques of pregnancy (PUPPP); O09.523 Supervision of elderly multigravida, third trimester; Z3A.38 38 weeks gestation of pregnancy; Z37.0 Single live birth
CPT/HCPCS: 36415; 80053; 81000; 83735; 84484; 85025; 85027; 85379; 85384; 85610; 85730; 86850; 86900; 86901; 86920; 87088

== ENCOUNTER 2016-08-26 19:52 | Emergency (ER) | payer BC ==
[~2016-08-26] VITALS: Ht 175.3 cm; Wt 92.1 kg
[~2016-08-26 19:52] MED LIST changes: +ACET1TAB43 PO; +DOCU100C37 PO; +FERR-74 PO
--- NOTE | 2016-08-26 20:07 | ED Lower Extremity ---
General Chief Complaint: Lower Extremity Stated Complaint: L LEG SWELLING/PAIN Nursing Triage Note: Patient reports L leg pain and swelling. patient recently gave Nursing Sepsis Screen: No Definite Risk Source: patient Exam Limitations: no limitations History of Present Illness Time seen by provider: 19:58 Initial Comments Here with increasing left lower leg swelling and pain over the last 24 hours. Had spontaneous vaginal delivery on 08/23/16. She did have transfusions of 2 units of packed red blood cells due to hemoglobin in the sevens and hemorrhage. She has been doing well at home over the last 24-48 hours other than the leg swelling. Has some bloody flow and reports a few clots but not significantly increasing otherwise. No fever or chills. Denies breathing problems. Onset: this morning Severity: moderate Pain/Injury Location: left leg Method of Injury: unknown Modifying Factors: Improves With Immobilization, Worse With Movement Allergies and Home Medications Allergies Coded Allergies: No Known Drug Allergies (Unverified , 06/20/10) Home Medications Acetaminophen with Codeine 1 Each Tablet, 1-2 TAB PO Q4H PRN for PAIN-MODERATE, #20 Prescribed by: CHECO FRAGOSO on 08/23/16 1529 Docusate Sodium 100 Mg Capsule, 100 MG PO BID, #60 Prescribed by: CHECO FRAGOSO on 08/23/16 1529 Ferrous Sulfate 325 Mg Tablet, 325 MG PO DAILY, #60 Prescribed by: CHECO FRAGOSO on 08/23/16 1529 Ibuprofen 600 Mg Tablet, 600 MG PO Q6H, #40 Prescribed by: CHECO FRAGOSO on 08/23/16 1529 Constitutional: see HPI, No chills, No fever EENTM: no symptoms reported Respiratory: no symptoms reported Cardiovascular: no symptoms reported Gastrointestinal: No nausea, No vomiting Genitourinary: no symptoms reported : No Musculoskeletal: see HPI, No joint pain, muscle pain Skin: change in color (redness to the left lower extremity), No rash Psychiatric/Neurological: Anxiety, Denies Weakness Past Nlaojcn-Qzsbnt-Newpqm Hx Patient Social History Alcohol Use: Denies Use Recreational Drug Use: No Smoking Status: Never a Smoker Type Used: Cigarettes Recent Foreign Travel: No Contact w/Someone Who Travel: No Recent Infectious Disease Expo: No Recent Hopitalizations: No Immunizations Up To Date Tetanus Booster (TDap): Unknown PED Vaccines UTD: No Date of Influenza Vaccine: Feb 13, 2012 Seasonal Allergies Seasonal Allergies: No Surgeries HX Surgeries: Yes (breast implants) Respiratory Hx Respiratory Disorders: No Cardiovascular Hx Cardiac Disorders: No Neurological Hx Neurological Disorders: No Reproductive System Hx Reproductive Disorders: Yes (ENDOMETRIOSIS) Sexually Transmitted Disease: No HIV/AIDS: No Female Reproductive Disorders: Denies Genitourinary Hx Genitourinary Disorders: No Genitourinary Disorders: Kidney Stones Gastrointestinal Hx Gastrointestinal Disorders: No Musculoskeletal Hx Musculoskeletal Disorders: No Endocrine Hx Endocrine Disorders: No HEENT HX ENT Disorders: No Cancer Hx Cancer: No Psychosocial Hx Psychiatric Problems: No Integumentary HX Skin/Integumentary Disorder: Yes (PUPPS) Blood Transfusions Hx Blood Disorders: No Adverse Reaction to a Blood Tr: No Reviewed Nursing Assessment Reviewed/Agree w Nursing PMH: Yes Family Medical History Significant Family History: No Pertinent Family Hx Family Medial History: Patient reports no known family medical history. Physical Exam Vital Signs Vital Sign - Last 12Hours 08/26/16 19:59 Temp 98.2 Pulse 102 Resp 18 B/P (MAP) 168/104 Pulse Ox 98 Capillary Refill : Less Than 3 Seconds General Appearance: WD/WN, no apparent distress HEENT: PERRL/EOMI, pharynx normal Neck: full range of motion, supple Cardiovascular: no murmur, tachycardia Respiratory: lungs clear, normal breath sounds Gastrointestinal: non tender, soft, other (uterus noted below the umbilicus and feels firm.) Back: normal inspection, no CVA tenderness, no vertebral tenderness Legs: right leg non-tender, right leg normal inspection, bilateral leg normal range of motion, bilateral leg no evidence of injury, left leg swelling Knees: bilateral knee non-tender, bilateral knee normal inspection, bilateral knee normal range of motion Feet: right foot non-tender, right foot normal inspection, left foot swelling Neurologic/Tendon: normal sensation, normal motor functions, normal tendon functions Neurologic/Psychiatric: alert, oriented x 3 Skin: normal color, warm/dry Lymphatic: no adenopathy Progress/Results/Core Measures Results/Orders Lab Results Laboratory Tests Test 08/26/16 20:11 08/26/16 21:07 Range/Units White Blood Count 9.3 4.3-11.0 10^3/uL Red Blood Count 3.38 L 4.35-5.85 10^6/uL Hemoglobin 9.8 L 11.5-16.0 G/DL Hematocrit 29 L 35-52 % Mean Corpuscular Volume 87 80-99 FL Mean Corpuscular Hemoglobin 29 25-34 PG Mean Corpuscular Hemoglobin Concent 33 32-36 G/DL Red Cell Distribution Width 14.2 10.0-14.5 % Platelet Count 373 130-400 10^3/uL Mean Platelet Volume 9.4 7.4-10.4 FL Neutrophils (%) (Auto) 50 42-75 % Lymphocytes (%) (Auto) 37 12-44 % Monocytes (%) (Auto) 9 0-12 % Eosinophils (%) (Auto) 4 0-10 % Basophils (%) (Auto) 0 0-10 % Neutrophils # (Auto) 4.7 1.8-7.8 X 10^3 Lymphocytes # (Auto) 3.4 1.0-4.0 X 10^3 Monocytes # (Auto) 0.9 0.0-1.0 X 10^3 Eosinophils # (Auto) 0.4 H 0.0-0.3 10^3/uL Basophils # (Auto) 0.0 0.0-0.1 10^3/uL Sodium Level 143 135-145 MMOL/L Potassium Level 3.6 3.6-5.0 MMOL/L Chloride Level 111 H 98-107 MMOL/L Carbon Dioxide Level 21 21-32 MMOL/L Anion Gap 11 5-14 MMOL/L Blood Urea Nitrogen 12 7-18 MG/DL Creatinine 0.70 0.60-1.30 MG/DL Estimat Glomerular Filtration Rate > 60 BUN/Creatinine Ratio 17 Glucose Level 107 H 70-105 MG/DL Uric Acid 5.1 2.6-7.2 MG/DL Calcium Level 8.8 8.5-10.1 MG/DL Total Bilirubin 0.2 0.1-1.0 MG/DL Aspartate Amino Transf (AST/SGOT) 23 5-34 U/L Alanine Aminotransferase (ALT/SGPT) 14 0-55 U/L Alkaline Phosphatase 78 40-136 U/L Lactate Dehydrogenase 161 125-220 U/L Total Protein 5.7 L 6.4-8.2 G/DL Albumin 2.9 L 3.2-4.5 G/DL Urine Color YELLOW Urine Clarity SLIGHTLY CLOUDY Urine pH 6 5-9 Urine Specific [place] 1.020 1.016-1.022 Urine Protein 1+ H NEGATIVE Urine Glucose (UA) NEGATIVE NEGATIVE Urine Ketones NEGATIVE NEGATIVE Urine Nitrite NEGATIVE NEGATIVE Urine Bilirubin NEGATIVE NEGATIVE Urine Urobilinogen NORMAL NORMAL MG/DL Urine Leukocyte Esterase 3+ H NEGATIVE Urine RBC (Auto) 5+ H NEGATIVE Urine RBC TNTC H /HPF Urine WBC 10-25 H /HPF Urine Squamous Epithelial Cells 25-50 H /HPF Urine Crystals NONE /LPF Urine Bacteria FEW H /HPF Urine Casts NONE /LPF Urine Mucus NEGATIVE /LPF Urine Culture Indicated YES My Orders Orders - TYSHAWN JAMES MD Us Venous Lower Ext Lt (08/26/16 20:04) Cbc With Automated Diff (08/26/16 20:04) Comprehensive Metabolic Panel (08/26/16 20:04) Ua Culture If Indicated (08/26/16 20:04) LDH (08/26/16 20:08) Uric Acid (08/26/16 20:08) Urine Culture (08/26/16 21:07) Vital Signs/I&O Vital Sign - Last 12Hours 08/26/16 19:59 Temp 98.2 Pulse 102 Resp 18 B/P (MAP) 168/104 Pulse Ox 98 Blood Pressure Mean: 125 Progress Note : Progress Note Seen and evaluated. Labs and UA ordered. Ultrasound left lower extremity ordered. 2006: I did discuss the case with Dr. Fragoso and she agrees with plan. 2132: No acute findings on ultrasound. UA appears contaminated and we will wait for culture. Overall no acute findings of DVT or of eclampsia. Patient's blood pressure is 120s over 80s currently. Discharged home with return precautions. Patient verbalize understanding instructions and agreement with plan. Diagnostic Imaging Diagonstic Imaging: Ultrasound Plain Films/CT/US/NM/MRI: leg Comments NAME: CASSANDRA BURRIS [facility] REC#: [id number] PT STATUS: REG ER : 1975 PHYSICIAN: TYSHAWN JAMES MD ADMIT DATE: 08/26/16/ER Signed Date of Exam: 08/26/16 US VENOUS LOWER EXT LT INDICATION: Left leg pain. Left leg venous Doppler study was performed in the routine fashion with color flow Doppler and waveform analysis. FINDINGS: The left common femoral vein, superficial femoral vein, popliteal vein and visualized portion of the posterior tibial vein show normal compressibility and venous flow patterns. There is normal augmentation. IMPRESSION: No evidence of deep vein thrombosis of the major veins of the left leg. Dictated by: Dictated on workstation # [id number] <Dictated by REY KEATING MD> 08/26/16 0740 Departure Impression Impression: Primary Impression: Leg edema, left Disposition: 01 HOME, SELF-CARE Condition: Improved Departure-Patient Inst. Decision time for Depature: 21:36 Referrals: CHECO FRAGOSO DO (PCP/Family) Primary Care Physician Patient Instructions: Dependent Edema (DC) Add. Discharge Instructions: All discharge instructions reviewed with patient and/or family. Voiced understanding. Continue home medications as directed. Follow-up with Dr. Fragoso early next week for recheck. Return for worse pain, fever, vomiting, weakness, breathing problems, increasing vaginal bleeding, vision problems or other concerns as needed. Copy Copies To 1: CHECO FRAGOSO TIMOTHY D MD Aug 26, 2016 20:06
[2016-08-26 20:20] LABS: BASOPHILS % (AUTO) 0 % (0-10); EOSINOPHILS # (AUTO) 0.4 10^3/uL (0.0-0.3); EOSINOPHILS % (AUTO) 4 % (0-10); LYMPHOCYTES # (AUTO) 3.4 X 10^3 (1.0-4.0); LYMPHOCYTES % (AUTO) 37 % (12-44); MEAN CORPUSCULAR HEMOGLOBIN 29 PG (25-34); MEAN CORPUSCULAR HGB CONC 33 G/DL (32-36); MEAN CORPUSCULAR VOLUME 87 FL (80-99); MEAN PLATELET VOLUME 9.4 FL (7.4-10.4); MONOCYTES # (AUTO) 0.9 X 10^3 (0.0-1.0); MONOCYTES % (AUTO) 9 % (0-12); NEUTROPHILS # (AUTO) 4.7 X 10^3 (1.8-7.8); NEUTROPHILS % (AUTO) 50 % (42-75); PLATELET COUNT 373 10^3/uL (130-400); RED BLOOD COUNT 3.38 10^6/uL (4.35-5.85); RED CELL DISTRIBUTION WIDTH 14.2 % (10.0-14.5); WHITE BLOOD COUNT 9.3 10^3/uL (4.3-11.0)
[2016-08-26 20:40] LABS: ALANINE AMINOTRANSFERASE 14 U/L (0-55); ALBUMIN 2.9 G/DL (3.2-4.5); ANION GAP 11 MMOL/L (5-14); ASPARTATE AMINO TRANSFERASE 23 U/L (5-34); BILIRUBIN,TOTAL 0.2 MG/DL (0.1-1.0); BLOOD UREA NITROGEN 12 MG/DL (7-18); BUN/CREATININE RATIO 17; CALCIUM 8.8 MG/DL (8.5-10.1); CARBON DIOXIDE 21 MMOL/L (21-32); CHLORIDE 111 MMOL/L (98-107); GFR ESTIMATED > 60; GLUCOSE 107 MG/DL (70-105); LACTATE DEHYDROGENASE 161 U/L (125-220); POTASSIUM 3.6 MMOL/L (3.6-5.0); SODIUM 143 MMOL/L (135-145); TOTAL PROTEIN 5.7 G/DL (6.4-8.2); URIC ACID 5.1 MG/DL (2.6-7.2)
--- NOTE | 2016-08-26 21:07 | Diagnostic Imaging Report ---
INDICATION: Left leg pain. Left leg venous Doppler study was performed in the routine fashion with color flow Doppler and waveform analysis. FINDINGS: The left common femoral vein, superficial femoral vein, popliteal vein and visualized portion of the posterior tibial vein show normal compressibility and venous flow patterns. There is normal augmentation. IMPRESSION: No evidence of deep vein thrombosis of the major veins of the left leg. Dictated by: Dictated on workstation # [id number]
[2016-08-26 21:16] LABS: BILIRUBIN,URINE NEGATIVE (NEGATIVE); KETONES,URINE NEGATIVE (NEGATIVE); LEUKOCYTE ESTERASE ,URINE 3+ (NEGATIVE); NITRITE,URINE NEGATIVE (NEGATIVE); PH,URINE 6 (5-9); PROTEIN,URINE 1+ (NEGATIVE); UROBILINOGEN,URINE NORMAL (NORMAL)
[2016-08-26 21:33] LABS: SQUAMOUS EPITHELIAL CELL,UR 25-50 /HPF
[2016-08-26 21:42] VITALS: BP 137/94
== END 2016-08-26 21:42 | disposition home or self-care (01) ==
LOC: EDUNIT# 19:52 → ER 19:53
DX: O90.89 Other complications of the puerperium, not elsewhere classified (principal); R60.0 Localized edema
CPT/HCPCS: 36415; 80053; 81000; 83615; 84550; 85025; 87088; 99283

== ENCOUNTER → 2017-11-10 | Outpatient (CLI) | payer BC ==
[~2017-11-10] MED LIST changes: +BUSP5TAB59 PO; +CHOL20002 PO; -FERR-74 PO; +FERR325T18 PO; +HYDR-3870 PO; +LISI1TAB6 PO; +NITR-65 PO; +TAMS0.4C98 PO; +UBID50TA3 PO
--- NOTE | 2017-11-10 13:01 | Diagnostic Imaging Report ---
INDICATION: Ureteral stone. TECHNIQUE: Two supine view of the abdomen at 10:50 AM CORRELATION STUDY: 11/12/2007 FINDINGS: There is moderate amount of overlying bowel gas and stool projecting in the proximal colon. No definitive calcification over the right renal silhouette and/or expected course of the ureter. There is a 10 mm calcification over the left renal silhouette. Additionally, there is punctate calcification in left hemipelvis could be reflective of calcification in the region of the expected lower left ureter. IMPRESSION: 1. No definitive calcification over the right renal silhouette and/or expected course of the ureter. However, this area is obscured by overlying bowel gas. 2. 1 cm calcification over left kidney. Additional small punctate calcification in left hemipelvis could be in the region of the distal left ureter. Dictated by: Dictated on workstation # [id number]
== END ==
LOC: RAD 10:15
PROVIDERS: ATTEND Urology
DX: N20.2 Calculus of kidney with calculus of ureter (principal)
CPT/HCPCS: 74018

== ENCOUNTER → 2017-12-18 | Outpatient (CLI) | payer BC ==
--- NOTE | 2017-12-18 09:39 | Diagnostic Imaging Report ---
INDICATION: Hepatic cyst noted on prior outside examination. TECHNIQUE: Multiple grayscale sonographic images were obtained of the right upper quadrant of the abdomen. CORRELATION STUDY: None FINDINGS: LIVER: There is uniform echotexture within the visualized portions of the liver. Definitive hypoechoic cystic mass of the liver is not suggested. GALLBLADDER: No shadowing gallstones. There is borderline gallbladder wall thickening at just under 3 mm in size. COMMON BILE DUCT: Upper limits of normal at 6 mm. PANCREAS: Largely obscured by overlying bowel gas. RIGHT KIDNEY: Measures 10.5 cm. No hydronephrosis. AORTA/IVC: Not well visualized. OTHER: None. IMPRESSION: 1. There is an unremarkable appearance about the liver parenchyma. No findings to suggest hepatic cyst. Correlation with patient's prior reported outside imaging is recommended. 2. Borderline gallbladder wall thickening and bile duct prominence. No shadowing gallstones. Dictated by: Dictated on workstation # [id number]
== END ==
LOC: RAD 06:38
PROVIDERS: ATTEND Urology
DX: K76.89 Other specified diseases of liver (principal)
CPT/HCPCS: 76705

== ENCOUNTER 2017-12-25 05:52 | Outpatient (CLI) | payer BC ==
[~2017-12-25] VITALS: Ht 175.3 cm; Wt 79.4 kg
[~2017-12-25 05:52] MED LIST changes: -BUSP5TAB59 PO; -CHOL20002 PO; -HYDR-3870 PO; -LISI1TAB6 PO; -NITR-65 PO; -TAMS0.4C98 PO; -UBID50TA3 PO
[2017-12-25] MEDS ORDERED: CHOL20002 PO (09:25)
[2017-12-25] MEDS ORDERED: BUSP5TAB59 PO (09:25)
[2017-12-25] MEDS ORDERED: LISI1TAB6 PO (09:25)
[2017-12-25] MEDS ORDERED: UBID50TA3 PO (09:25)
== END 2017-12-25 09:42 | disposition home or self-care (01) ==
LOC: PREOP 05:52
PROVIDERS: ATTEND Urology
DX: Z01.818 Encounter for other preprocedural examination (principal)

== ENCOUNTER 2017-12-27 08:36 | Day surgery (SDC) | payer BC ==
[~2017-12-27] VITALS: Ht 175.3 cm; Wt 79.4 kg
[~2017-12-27 08:36] MED LIST changes: +BUSP5TAB59 PO; +CHOL20002 PO; +LISI1TAB6 PO; +UBID50TA3 PO
--- OUTSIDE RECORDS SUMMARY | 2017-12-27 08:39 | XMS REPORT | Clinical Summary ---
Author Author [facility] Organization [facility] Address Unknown Phone Unavailable Care Team Providers Care Alloy Weigher Name Role Phone JudithNubia LM PCP Unavailable Jan Hargrove DO Unavailable Sadiq Gaines MD Unavailable Marilyn Eng RN Unavailable Unavailable Source Comments Some departments are not documenting in the electronic medical record. If you do not see the information that you expected, contact Release of Information in the Health Information Management department at [phone] for further assistance in locating additional records.[facility] Allergies No Known Allergies Current Medications Prescription Sig. [...] x 1 60 Cap 1 10/07/19 Active capsuleIndications: week, then up to one tab 16 Fibromyalgia po bid Indications: FIBROMYALGIA Active Problems Problem Noted Date Fibromyalgia 10/07/2015 Malaise and fatigue 10/07/2015 Pain in joint, multiple sites 10/07/2015 Family History Medical History Relation Name Comments Other Sister Ovarian Cyst Other Sister Patricia Chronic Ovarian Cysts- Hysterectomy Relation Name Status Comments Brother Alive Brother Alive Father Hx unknown (Age 61) Mother Alive Hx unknown Sister Alive Sister Alive Sister Patricia Alive Son Alive Son Alive Social History Tobacco Use Types Packs/Day Years Used Date Never Smoker Smokeless Tobacco: Never Used Tobacco Cessation: Counseling Given: No Alcohol Use Drinks/Week oz/Week Comments No 0 Standard 0.0 drinks or equivalent Sex Assigned at Date Recorded Not on file Last Filed Vital Signs Vital Sign Reading Time Taken Blood Pressure 137/97 10/07/2015 3:14 PM CDT Pulse 71 10/07/2015 3:14 PM CDT Temperature 36.7 C (98 F) 10/07/2015 1:25 PM CDT Respiratory Rate 20 10/07/2015 3:14 PM CDT Oxygen Saturation 100% 10/07/2015 3:14 PM CDT Inhaled Oxygen - - Concentration Weight 79.4 kg (175 lb) 10/07/2015 3:14 PM CDT Height 175.3 cm (5' 9.02") 10/07/2015 3:14 PM CDT Body Mass Index 25.83 10/07/2015 3:14 PM CDT Plan of Treatment Health Maintenance Due Date Last Done Comments PHYSICAL (COMPREHENSIVE) 1982 EXAM PERTUSSIS VACCINE 1986 HIV SCREENING 1990 TETANUS VACCINE 1992 CERVICAL CANCER SCREENING 2005 BREAST CANCER SCREENING 2015 INFLUENZA VACCINE 02/12/2018 Results Not on filefrom Last 3 Months
--- OUTSIDE RECORDS SUMMARY | 2017-12-27 08:40 | XMS REPORT | Continuity of Care Document ---
Author Author [facility] Address Unknown Phone Unavailable Allergies Active Description Code Type Severity Reaction Onset Reported/Identified Relationship to Patient Clinical Status Yes No Known Drug Allergies [id number] Drug Allergy Unknown N/A 06/20/2010 Medications There is no data. Problems Date Dx Coded Attending Type Code Diagnosis Diagnosed By 12/17/2007 CAILIN MILIAN DO 729.5 Pain In Limb 12/17/2007 CAILIN MILIAN DO 729.5 Pain In Limb 12/17/2007 729.5 Pain In Limb 12/17/2007 729.5 Pain In Limb 12/17/2007 729.5 Pain In Limb 12/17/2007 CAILIN MILIAN DO 729.5 Pain In Limb 12/17/2007 729.5 Pain In Limb 12/17/2007 729.5 Pain In Limb 12/17/2007 729.5 Pain In Limb 12/17/2007 729.5 Pain In Limb 12/17/2007 729.5 Pain In Limb 01/25/2008 CAILIN MILIAN DO 719.41 Pain In Joint Involving Shoulder Region 01/25/2008 CAILIN MILIAN DO 719.41 Pain In Joint Involving Shoulder Region 01/25/2008 719.41 Pain In Joint Involving Shoulder Region 01/25/2008 719.41 Pain In Joint Involving Shoulder Region 01/25/2008 719.41 Pain In Joint Involving Shoulder Region 01/25/2008 CAILIN MILIAN DO 719.41 Pain In Joint Involving Shoulder Region 01/25/2008 719.41 Pain In Joint Involving Shoulder Region 01/25/2008 719.41 Pain In Joint Involving Shoulder Region 01/25/2008 719.41 Pain In Joint Involving Shoulder Region 01/25/2008 719.41 Pain In Joint Involving Shoulder Region 01/25/2008 719.41 Pain In Joint Involving Shoulder Region 03/07/2008 CAILIN MILIAN DO 715.90 Osteoarthrosis Unspecified Whether Generalized Or Localized Involving Unspecified Site 03/07/2008 CAILIN MILIAN DO 715.90 Osteoarthrosis Unspecified Whether Generalized Or Localized Involving Unspecified Site 03/07/2008 715.90 Osteoarthrosis Unspecified Whether Generalized Or Localized Involving Unspecified Site 03/07/2008 715.90 Osteoarthrosis Unspecified Whether Generalized Or Localized Involving Unspecified Site 03/07/2008 715.90 Osteoarthrosis Unspecified Whether Generalized Or Localized Involving Unspecified Site 03/07/2008 CAILIN MILIAN DO 715.90 Osteoarthrosis Unspecified Whether Generalized Or Localized Involving Unspecified Site 03/07/2008 715.90 Osteoarthrosis Unspecified Whether Generalized Or Localized Involving Unspecified Site 03/07/2008 715.90 Osteoarthrosis Unspecified Whether Generalized Or Localized Involving Unspecified Site 03/07/2008 715.90 Osteoarthrosis Unspecified Whether Generalized Or Localized Involving Unspecified Site 03/07/2008 715.90 Osteoarthrosis Unspecified Whether Generalized Or Localized Involving Unspecified Site 03/07/2008 715.90 Osteoarthrosis Unspecified Whether Generalized Or Localized Involving Unspecified Site 05/16/2008 CAILIN MILIAN DO 726.90 Enthesopathy Of Unspecified Site 05/16/2008 CAILIN MILIAN DO 726.90 Enthesopathy Of Unspecified Site 05/16/2008 726.90 Enthesopathy Of Unspecified Site 05/16/2008 726.90 Enthesopathy Of Unspecified Site 05/16/2008 726.90 Enthesopathy Of Unspecified Site 05/16/2008 CAILIN MILIAN DO 726.90 Enthesopathy Of Unspecified Site 05/16/2008 726.90 Enthesopathy Of Unspecified Site 05/16/2008 726.90 Enthesopathy Of Unspecified Site 05/16/2008 726.90 Enthesopathy Of Unspecified Site 05/16/2008 726.90 Enthesopathy Of Unspecified Site 05/16/2008 726.90 Enthesopathy Of Unspecified Site 12/08/2008 CAILIN MILIAN DO 380.10 Otitis Externa Unspecified 12/08/2008 CAILIN MILIAN DO 380.10 Otitis Externa Unspecified 12/08/2008 380.10 Otitis Externa Unspecified 12/08/2008 380.10 Otitis Externa Unspecified 12/08/2008 380.10 Otitis Externa Unspecified 12/08/2008 CAILIN MILIAN DO 380.10 Otitis Externa Unspecified 12/08/2008 380.10 Otitis Externa Unspecified 12/08/2008 380.10 Otitis Externa Unspecified 12/08/2008 380.10 Otitis Externa Unspecified 12/08/2008 380.10 Otitis Externa Unspecified 12/08/2008 380.10 Otitis Externa Unspecified 10/24/2009 CAILIN MILIAN DO V25.49 Surveillance Of Other Contraceptive Method 10/24/2009 CAILIN MILIAN DO V25.49 Surveillance Of Other Contraceptive Method 10/24/2009 V25.49 Surveillance Of Other Contraceptive Method 10/24/2009 V25.49 Surveillance Of Other Contraceptive Method 10/24/2009 V25.49 Surveillance Of Other Contraceptive Method 10/24/2009 CAILIN MILIAN DO V25.49 Surveillance Of Other Contraceptive Method 10/24/2009 V25.49 Surveillance Of Other Contraceptive Method 10/24/2009 V25.49 Surveillance Of Other Contraceptive Method 10/24/2009 V25.49 Surveillance Of Other Contraceptive Method 10/24/2009 V25.49 Surveillance Of Other Contraceptive Method 10/24/2009 V25.49 Surveillance Of Other Contraceptive Method 10/27/2009 CAILIN MILIAN DO V22.0 Pc Normal First 10/27/2009 CAILIN MILIAN DO V22.0 Pc Normal First 10/27/2009 V22.0 Pc Normal First 10/27/2009 V22.0 Pc Normal First 10/27/2009 V22.0 Pc Normal First 10/27/2009 CAILIN MILIAN DO V22.0 Pc Normal First 10/27/2009 V22.0 Pc Normal First 10/27/2009 V22.0 Pc Normal First 10/27/2009 V22.0 Pc Normal First 10/27/2009 V22.0 Pc Normal First 10/27/2009 V22.0 Pc Normal First 11/09/2009 CAILIN MILIAN DO V22.0 Pc Normal First 11/09/2009 CAILIN MILIAN DO V22.0 Pc Normal First 11/09/2009 V22.0 Pc Normal First 11/09/2009 V22.0 Pc Normal First 11/09/2009 V22.0 Pc Normal First 11/09/2009 CAILIN MILIAN DO V22.0 Pc Normal First 11/09/2009 V22.0 Pc Normal First 11/09/2009 V22.0 Pc Normal First 11/09/2009 V22.0 Pc Normal First 11/09/2009 V22.0 Pc Normal First 11/09/2009 V22.0 Pc Normal First 12/07/2009 CAILIN MILIAN DO 787.01 Nausea With Vomiting 12/07/2009 CAILIN MILIAN DO 787.01 Nausea With Vomiting 12/07/2009 787.01 Nausea With Vomiting 12/07/2009 787.01 Nausea With Vomiting 12/07/2009 787.01 Nausea With Vomiting 12/07/2009 CAILIN MILIAN DO 787.01 Nausea With Vomiting 12/07/2009 787.01 Nausea With Vomiting 12/07/2009 787.01 Nausea With Vomiting 12/07/2009 787.01 Nausea With Vomiting 12/07/2009 787.01 Nausea With Vomiting 12/07/2009 787.01 Nausea With Vomiting 03/31/2010 CAILIN MILIAN DO 649.60 Uterine Size Date Discrepancy - Lga 03/31/2010 CAILIN MILIAN DO 649.60 Uterine Size Date Discrepancy - Lga 03/31/2010 649.60 Uterine Size Date Discrepancy - Lga 03/31/2010 649.60 Uterine Size Date Discrepancy - Lga 03/31/2010 649.60 Uterine Size Date Discrepancy - Lga 03/31/2010 CAILIN MILIAN DO 649.60 Uterine Size Date Discrepancy - Lga 03/31/2010 649.60 Uterine Size Date Discrepancy - Lga 03/31/2010 649.60 Uterine Size Date Discrepancy - Lga 03/31/2010 649.60 Uterine Size Date Discrepancy - Lga 03/31/2010 649.60 Uterine Size Date Discrepancy - Lga 03/31/2010 649.60 Uterine Size Date Discrepancy - Lga 11/09/2010 CAILIN MILIAN DO V24.2 Visit For: Exam 11/09/2010 CAILIN MILIAN DO V24.2 Visit For: Exam 11/09/2010 V24.2 Visit For: Exam 11/09/2010 V24.2 Visit For: Exam 11/09/2010 V24.2 Visit For: Exam 11/09/2010 CAILIN MILIAN DO V24.2 Visit For: Exam 11/09/2010 V24.2 Visit For: Exam 11/09/2010 V24.2 Visit For: Exam 11/09/2010 V24.2 Visit For: Exam 11/09/2010 V24.2 Visit For: Exam 11/09/2010 V24.2 Visit For: Exam 12/14/2011 CAILIN MILIAN DO 659.60 OTHER ADVANCED MATERNAL AGE UNSPECIFIED TO EPISODE OF CARE OR NOT APPLICABLE 12/14/2011 CAILIN MILIAN DO V23.9 , HIGH-RISK (UNSPEC) 12/14/2011 CAILIN MILIAN DO 659.60 OTHER ADVANCED MATERNAL AGE UNSPECIFIED TO EPISODE OF CARE OR NOT APPLICABLE 12/14/2011 CAILIN MILIAN DO V23.9 , HIGH-RISK (UNSPEC) 12/14/2011 659.60 OTHER ADVANCED MATERNAL AGE UNSPECIFIED TO EPISODE OF CARE OR NOT APPLICABLE 12/14/2011 V23.9 , HIGH-RISK (UNSPEC) 12/14/2011 659.60 OTHER ADVANCED MATERNAL AGE UNSPECIFIED TO EPISODE OF CARE OR NOT APPLICABLE 12/14/2011 V23.9 , HIGH-RISK (UNSPEC) 12/14/2011 659.60 OTHER ADVANCED MATERNAL AGE UNSPECIFIED TO EPISODE OF CARE OR NOT APPLICABLE 12/14/2011 V23.9 , HIGH-RISK (UNSPEC) 12/14/2011 CAILIN MILIAN DO 659.60 OTHER ADVANCED MATERNAL AGE UNSPECIFIED TO EPISODE OF CARE OR NOT APPLICABLE 12/14/2011 CAILIN MILIAN DO V23.9 , HIGH-RISK (UNSPEC) 12/14/2011 659.60 OTHER ADVANCED MATERNAL AGE UNSPECIFIED TO EPISODE OF CARE OR NOT APPLICABLE 12/14/2011 V23.9 , HIGH-RISK (UNSPEC) 12/14/2011 659.60 OTHER ADVANCED MATERNAL AGE UNSPECIFIED TO EPISODE OF CARE OR NOT APPLICABLE 12/14/2011 V23.9 , HIGH-RISK (UNSPEC) 12/14/2011 659.60 OTHER ADVANCED MATERNAL AGE UNSPECIFIED TO EPISODE OF CARE OR NOT APPLICABLE 12/14/2011 V23.9 , HIGH-RISK (UNSPEC) 12/14/2011 659.60 OTHER ADVANCED MATERNAL AGE UNSPECIFIED TO EPISODE OF CARE OR NOT APPLICABLE 12/14/2011 V23.9 , HIGH-RISK (UNSPEC) 12/14/2011 659.60 OTHER ADVANCED MATERNAL AGE UNSPECIFIED TO EPISODE OF CARE OR NOT APPLICABLE 12/14/2011 V23.9 , HIGH-RISK (UNSPEC) 12/27/2011 CAILIN MILIAN DO V76.2 Cervical Cancer Screening (pap Smear) 12/27/2011 CAILIN MILIAN DO V76.2 Cervical Cancer Screening (pap Smear) 12/27/2011 V76.2 Cervical Cancer Screening (pap Smear) 12/27/2011 V76.2 Cervical Cancer Screening (pap Smear) 12/27/2011 V76.2 Cervical Cancer Screening (pap Smear) 12/27/2011 CAILIN MILIAN DO V76.2 Cervical Cancer Screening (pap Smear) 12/27/2011 V76.2 Cervical Cancer Screening (pap Smear) 12/27/2011 V76.2 Cervical Cancer Screening (pap Smear) 12/27/2011 V76.2 Cervical Cancer Screening (pap Smear) 12/27/2011 V76.2 Cervical Cancer Screening (pap Smear) 12/27/2011 V76.2 Cervical Cancer Screening (pap Smear) 01/24/2012 CAILIN MILIAN DO 564.00 Unspecified Constipation 01/24/2012 CAILIN MILIAN DO 564.00 Unspecified Constipation 01/24/2012 564.00 Unspecified Constipation 01/24/2012 564.00 Unspecified Constipation 01/24/2012 564.00 Unspecified Constipation 01/24/2012 CAILIN MILIAN DO 564.00 Unspecified Constipation 01/24/2012 564.00 Unspecified Constipation 01/24/2012 564.00 Unspecified Constipation 01/24/2012 564.00 Unspecified Constipation 01/24/2012 564.00 Unspecified Constipation 01/24/2012 564.00 Unspecified Constipation 03/12/2012 CAILIN MILIAN DO V04.81 FLU SHOT 03/12/2012 CAILIN MILIAN DO V22.1 , NORMAL OTHER 03/12/2012 CAILIN MILIAN DO V04.81 FLU SHOT 03/12/2012 CAILIN MILIAN DO V22.1 , NORMAL OTHER 03/12/2012 V04.81 FLU SHOT 03/12/2012 V22.1 , NORMAL OTHER 03/12/2012 V04.81 FLU SHOT 03/12/2012 V22.1 , NORMAL OTHER 03/12/2012 V04.81 FLU SHOT 03/12/2012 V22.1 , NORMAL OTHER 03/12/2012 CAILIN MILIAN DO V04.81 FLU SHOT 03/12/2012 CAILIN MILIAN DO V22.1 , NORMAL OTHER 03/12/2012 V04.81 FLU SHOT 03/12/2012 V22.1 , NORMAL OTHER 03/12/2012 V04.81 FLU SHOT 03/12/2012 V22.1 , NORMAL OTHER 03/12/2012 V04.81 FLU SHOT 03/12/2012 V22.1 , NORMAL OTHER 03/12/2012 V04.81 FLU SHOT 03/12/2012 V22.1 , NORMAL OTHER 03/12/2012 V04.81 FLU SHOT 03/12/2012 V22.1 , NORMAL OTHER 04/11/2012 CAILIN MILIAN DO V77.1 DIABETES SCREENING 04/11/2012 CAILIN MILIAN DO V78.0 ANEMIA SCREENING 04/11/2012 CAILIN MILIAN DO V77.1 Diabetes Screening 04/11/2012 CAILIN MILIAN DO V78.0 Anemia Screening 04/11/2012 V77.1 Diabetes Screening 04/11/2012 V78.0 Anemia Screening 04/11/2012 V77.1 Diabetes Screening 04/11/2012 V78.0 Anemia Screening 04/11/2012 V77.1 Diabetes Screening 04/11/2012 V78.0 Anemia Screening 04/11/2012 CAILIN MILIAN DO V77.1 Diabetes Screening 04/11/2012 CAILIN MILIAN DO V78.0 Anemia Screening 04/11/2012 V77.1 Diabetes Screening 04/11/2012 V78.0 Anemia Screening 04/11/2012 V77.1 Diabetes Screening 04/11/2012 V78.0 Anemia Screening 04/11/2012 V77.1 Diabetes Screening 04/11/2012 V78.0 Anemia Screening 04/11/2012 V77.1 Diabetes Screening 04/11/2012 V78.0 Anemia Screening 04/11/2012 V77.1 Diabetes Screening 04/11/2012 V78.0 Anemia Screening 05/09/2012 Ot 648.93 OTH CURR COND-ANTEPARTUM 05/09/2012 Ot 787.02 NAUSEA ALONE 05/10/2012 461.9 SINUSITIS ACUTE 05/10/2012 465.9 UPPER RESPIRATORY INFECTION 05/10/2012 461.9 Sinusitis Acute 05/10/2012 465.9 Upper Respiratory Infection 05/10/2012 461.9 Sinusitis Acute 05/10/2012 465.9 Upper Respiratory Infection 05/10/2012 CAILIN MILIAN DO K 461.9 Sinusitis Acute 05/10/2012 MILIAN DO, CAILIN K 465.9 Upper Respiratory Infection 05/10/2012 461.9 Sinusitis Acute 05/10/2012 465.9 Upper Respiratory Infection 05/10/2012 461.9 Sinusitis Acute 05/10/2012 465.9 Upper Respiratory Infection 05/10/2012 461.9 Sinusitis Acute 05/10/2012 465.9 Upper Respiratory Infection 05/10/2012 461.9 Sinusitis Acute 05/10/2012 465.9 Upper Respiratory Infection 05/10/2012 461.9 Sinusitis Acute 05/10/2012 465.9 Upper Respiratory Infection 07/01/2012 Ot 644.03 THRT NAVDEEP LABOR-ANTEPART 07/18/2012 Ot 659.71 ABN DEL FET HT RT/RHYTHM,W OR W/O MENTIO 07/18/2012 Ot V27.0 DELIVER- SINGLE LIVEBORN 11/17/2012 595.9 CYSTITIS UNSPECIFIED 11/26/2012 625.9 PELVIC PAIN 01/26/2013 462 ACUTE PHARYNGITIS 01/26/2013 780.50 UNSPECIFIED SLEEP DISTURBANCE 01/26/2013 780.79 OTHER MALAISE AND FATIGUE 01/26/2013 786.09 RESPIRATORY ABNORMALITY OTHER 01/26/2013 V72.40 EXAMINATION OR TEST UNCONFIRMED 08/01/2016 Ot 649.63 UTERINE SIZE DATE DISCREPANCY, ANTEPARTU 08/01/2016 Ot 659.63 ELD MULTIGRAVIDA W ANTEPARTUM COND OR CO 08/01/2016 Ot V23.9 SUPRV HIGH- RISK PREG NOS 08/01/2016 Ot 620.2 OVARIAN CYST NEC/NOS 08/01/2016 Ot 648.93 OTH CURR COND-ANTEPARTUM 08/01/2016 Ot V28.81 ENCOUNTER FOR ANATOMIC SURVEY 08/01/2016 Ot 656.63 EXCESS FET GRTH-ANTEPART 08/01/2016 KORY GOLDMAN WORKFORCE DEVELOPMENT SPECIALIST Ot 625.9 FEM GENITAL SYMPTOMS NOS 08/01/2016 CHECO FRAGOSO DO Ot 620.2 OVARIAN CYST NEC/NOS 08/01/2016 CHECO FRAGOSO DO Ot 625.9 FEM GENITAL SYMPTOMS NOS 08/01/2016 CEHCO FRAGOSO DO Ot V72.63 PRE-PROCEDURAL LABORATORY EXAMINATION 08/01/2016 CHECO FRAGOSO DO Ot V74.8 SCREEN-BACTERIAL DIS NEC 08/01/2016 CHECO FRAGOSO DO Ot 614.6 FEM PELVIC PERITON ADH-POST-OP/INF 08/01/2016 CHECO FRAGOSO DO Ot 617.1 OVARIAN ENDOMETRIOSIS 08/01/2016 CHECO FRAGOSO DO Ot 617.3 PELV PERIT ENDOMETRIOSIS 08/01/2016 CHECO FRAGOSO DO Ot 620.2 OVARIAN CYST NEC/NOS 08/02/2016 CHECO FRAGOSO DO, Ot O09.522 SUPERVISION OF ELDERLY MULTIGRAVIDA, SEC 08/02/2016 CHECO FRAGOSO DO, Ot Z3A.35 35 WEEKS GESTATION OF 08/16/2016 CHECO FRAGOSO DO Ot O09.523 SUPERVISION OF ELDERLY MULTIGRAVIDA, THI 08/16/2016 CHECO FRAGOSO DO, Ot O47.03 FALSE LABOR BEFORE 37 COMPLETED WEEKS OF 08/16/2016 CHECO FRAGOSO DO, Ot Z3A.35 35 WEEKS GESTATION OF 08/16/2016 CHECO FRAGOSO DO, Ot O09.522 SUPERVISION OF ELDERLY MULTIGRAVIDA, SEC 08/16/2016 CHECO FRAGOSO DO, Ot Z3A.35 35 WEEKS GESTATION OF 08/23/2016 Ot 649.63 UTERINE SIZE DATE DISCREPANCY, ANTEPARTU 08/23/2016 Ot 659.63 ELD MULTIGRAVIDA W ANTEPARTUM COND OR CO 08/23/2016 Ot V23.9 SUPRV HIGH- RISK PREG NOS 08/23/2016 Ot 620.2 OVARIAN CYST NEC/NOS 08/23/2016 Ot 648.93 OTH CURR COND-ANTEPARTUM 08/23/2016 Ot V28.81 ENCOUNTER FOR ANATOMIC SURVEY 08/23/2016 Ot 656.63 EXCESS FET GRTH-ANTEPART 08/23/2016 KORY GOLDMAN WORKFORCE DEVELOPMENT SPECIALIST Ot 625.9 FEM GENITAL SYMPTOMS NOS 08/23/2016 CHECO FRAGOSO DO Ot 620.2 OVARIAN CYST NEC/NOS 08/23/2016 CHECO FRAGOSO DO Ot 625.9 FEM GENITAL SYMPTOMS NOS 08/23/2016 CHECO FRAGOSO DO Ot V72.63 PRE-PROCEDURAL LABORATORY EXAMINATION 08/23/2016 CHECO FRAGOSO DO, Ot V74.8 SCREEN-BACTERIAL DIS NEC 08/23/2016 CHECO FRAGOSO DO Ot 614.6 FEM PELVIC PERITON ADH-POST-OP/INF 08/23/2016 CHECO FRAGOSO DO Ot 617.1 OVARIAN ENDOMETRIOSIS 08/23/2016 CHECO FRAGOSO DO Ot 617.3 PELV PERIT ENDOMETRIOSIS 08/23/2016 CHECO FRAGOSO DO Ot 620.2 OVARIAN CYST NEC/NOS 08/23/2016 CHECO FRAGOSO DO, Ot O09.522 SUPERVISION OF ELDERLY MULTIGRAVIDA, SEC 08/23/2016 CHECO FRAGOSO DO, Ot Z3A.35 35 WEEKS GESTATION OF 08/23/2016 CHECO FRAGOSO DO, Ot O09.523 SUPERVISION OF ELDERLY MULTIGRAVIDA, THI 08/23/2016 CHECO FRAGOSO DO Ot O47.03 FALSE LABOR BEFORE 37 COMPLETED WEEKS OF 08/23/2016 CHECO FRAGOSO DO Ot Z3A.35 35 WEEKS GESTATION OF 08/25/2016 CHECO FRAGOSO DO, Ot O09.523 SUPERVISION OF ELDERLY MULTIGRAVIDA, THI 08/25/2016 CHECO FRAGOSO DO, Ot O13.3 GESTATIONAL HTN W/O SIGNIFICANT PROTEINU 08/25/2016 CHECO FRAGOSO DO, Ot 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.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 08/25/2016 CHECO FRAGOSO DO, Ot O41.03X0 OLIGOHYDRAMNIOS, THIRD TRIMESTER, NOT AP 08/25/2016 CHECO FRAGOSO DO Ot O72.1 OTHER IMMEDIATE HEMORRHAGE 08/25/2016 CHECO FRAGOSO DO Ot R55 SYNCOPE AND COLLAPSE 08/25/2016 CHECO FRAGOSO DO, Ot Z37.0 SINGLE LIVE 08/25/2016 CHECO RFAGOSO DO, Ot Z3A.38 38 WEEKS GESTATION OF 08/26/2016 Ot 649.63 UTERINE SIZE DATE DISCREPANCY, ANTEPARTU 08/26/2016 Ot 659.63 ELD MULTIGRAVIDA W ANTEPARTUM COND OR CO 08/26/2016 Ot V23.9 SUPRV HIGH- RISK PREG NOS 08/26/2016 Ot 620.2 OVARIAN CYST NEC/NOS 08/26/2016 Ot 648.93 OTH CURR COND-ANTEPARTUM 08/26/2016 Ot V28.81 ENCOUNTER FOR ANATOMIC SURVEY 08/26/2016 Ot 656.63 EXCESS FET GRTH-ANTEPART 08/26/2016 KORY GOLDMAN WORKFOR[employer] DEVELOPMENT SPECIALIST Ot 625.9 FEM GENITAL SYMPTOMS NOS 08/26/2016 CHECO FRAGOSO DO Ot 620.2 OVARIAN CYST NEC/NOS 08/26/2016 CHECO FRAGOSO DO Ot 625.9 FEM GENITAL SYMPTOMS NOS 08/26/2016 CHECO FRAGOSO DO Ot V72.63 PRE-PROCEDURAL LABORATORY EXAMINATION 08/26/2016 CHECO FRAGOSO DO Ot V74.8 SCREEN-BACTERIAL DIS NEC 08/26/2016 CHECO FRAGOSO DO Ot 614.6 FEM PELVIC PERITON ADH-POST-OP/INF 08/26/2016 CHECO FRAGOSO DO Ot 617.1 OVARIAN ENDOMETRIOSIS 08/26/2016 CHECO FRAGOSO DO Ot 617.3 PELV PERIT ENDOMETRIOSIS 08/26/2016 CHECO FRAGOSO DO Ot 620.2 OVARIAN CYST NEC/NOS 08/26/2016 CHECO FRAGOSO DO Ot O09.522 SUPERVISION OF ELDERLY MULTIGRAVIDA, SEC 08/26/2016 CHECO FRAGOSO DO Ot Z3A.35 35 WEEKS GESTATION OF 08/26/2016 CHECO FRAGOSO DO Ot O09.523 SUPERVISION OF ELDERLY MULTIGRAVIDA, THI 08/26/2016 CHECO FRAGOSO DO Ot O47.03 FALSE LABOR BEFORE 37 COMPLETED WEEKS OF 08/26/2016 CHECO FRAGOSO DO Ot Z3A.35 35 WEEKS GESTATION OF 08/26/2016 ERIKA RTAYLOR, TYSHAWN Ramirez Ot O90.89 OTH COMPLICATIONS OF THE PUERPERIUM, NEC 08/26/2016 ERIKA TRAYLOR, TYSHAWN Ramirez Ot R60.0 LOCALIZED EDEMA 08/29/2016 ERIKA MD, TYSHAWN D Ot O90.89 OTH COMPLICATIONS OF THE PUERPERIUM, NEC 08/29/2016 TYSHAWN JAMES MD Ot R60.0 LOCALIZED EDEMA 09/01/2016 TYSHAWN JAMES MD Ot O90.89 OTH COMPLICATIONS OF THE PUERPERIUM, NEC 09/01/2016 TYSHAWN JAMES MD Ot R60.0 LOCALIZED EDEMA 09/29/2016 CHECO FRAGOSO DO Ot O09.523 SUPERVISION OF ELDERLY MULTIGRAVIDA, THI 09/29/2016 FOUZIA MARIN CHECO C Ot O47.03 FALSE LABOR BEFORE 37 COMPLETED WEEKS OF 09/29/2016 FOUZIA MARIN CHECO C Ot Z3A.35 35 WEEKS GESTATION OF 11/13/2016 CHECO FRAGOSO DO Ot O09.523 SUPERVISION OF ELDERLY MULTIGRAVIDA, [facility] 11/13/2016 CHECO FRAGOSO DO Ot O47.03 FALSE LABOR BEFORE 37 COMPLETED WEEKS OF 11/13/2016 CHECO FRAGOSO DO Ot Z3A.35 35 WEEKS GESTATION OF 11/10/2017 KORY GOLDMAN Ot 625.9 FEM GENITAL SYMPTOMS NOS 11/10/2017 FOUZIA MRAIN CHECO C Ot 620.2 OVARIAN CYST NEC/NOS 11/10/2017 FOUZIA MARIN CHECO C Ot 625.9 FEM GENITAL SYMPTOMS NOS 11/10/2017 FOUZIA MARIN CHCEO C Ot V72.63 PRE-PROCEDURAL LABORATORY EXAMINATION 11/10/2017 FOUZIA MARIN CHECO C Ot V74.8 SCREEN-BACTERIAL DIS NEC 11/10/2017 FOUZIA MARIN CHECO C Ot 614.6 FEM PELVIC PERITON ADH-POST-OP/INF 11/10/2017 FOUZIA MARIN CHECO C Ot 617.1 OVARIAN ENDOMETRIOSIS 11/10/2017 FOUZIA MARIN CHECO C Ot 617.3 PELV PERIT ENDOMETRIOSIS 11/10/2017 FOUZIA MARIN CHECO C Ot 620.2 OVARIAN CYST NEC/NOS 11/10/2017 FOUZIA MARIN CHECO C Ot O09.522 SUPERVISION OF ELDERLY MULTIGRAVIDA, [facility] 11/10/2017 CHECO FRAGOSO DO Ot Z3A.35 35 WEEKS GESTATION OF 11/10/2017 CHECO FRAGOSO DO Ot O09.523 SUPERVISION OF ELDERLY MULTIGRAVIDA, [facility] 11/10/2017 CHECO FRAGOSO DO Ot O47.03 FALSE LABOR BEFORE 37 COMPLETED WEEKS OF 11/10/2017 CHECO FRAGOSO DO Ot Z3A.35 35 WEEKS GESTATION OF 11/13/2017 CALLIE DOBSON MD, Ot N20.2 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 11/23/2017 CALLIE DOBSON MD, Ot 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 Procedures Code Description [place] [address] UA OB DIP 03/12/2012 22889 US OB ULTRASOUND 03/14/2012 14855 ROUTINE VENIPUNCTURE 04/11/2012 59321 US OB ULTRASOUND 04/11/2012 03744 UA OB DIP 04/11/2012 95687 CBC 04/11/2012 32693 GLUCOSE DONALDO 1 HOUR 04/11/2012 85790 UA OB DIP 04/25/2012 05197 UA OB DIP 05/21/2012 28434 UA OB DIP 06/04/2012 26382 UA OB DIP 06/20/2012 25464 CULTURE GROUP B STREP VAG 06/22/2012 12422 UA OB DIP 06/27/2012 25731 UA OB DIP 07/04/2012 92076 UA OB DIP 07/11/2012 73.4 MEDICAL INDUCTION LABOR 07/16/2012 73.59 MANUAL ASSIST DELIV NEC 07/16/2012 88248 URINE TEST (IN- HOUSE) 01/26/2013 [id number] DELIVERY OF PRODUCTS OF CONCEPTION, EXTE 08/23/2016 Results Test Result Range Complete urinalysis with reflex to culture - 08/23/16 06:00 Urine color determination YELLOW NRG Urine clarity determination CLEAR NRG Urine pH measurement by test strip 7 5-9 Specific gravity of urine by test strip 1.015 1.016- 1.022 Urine protein assay by test strip, semi-quantitative NEGATIVE NEGATIVE Urine glucose detection by automated test strip NEGATIVE NEGATIVE Erythrocytes detection in urine sediment by light microscopy 1+ NEGATIVE Urine ketones detection by automated test strip NEGATIVE NEGATIVE Urine nitrite detection by test strip NEGATIVE NEGATIVE Urine total bilirubin detection by test strip NEGATIVE NEGATIVE Urine urobilinogen measurement by automated test strip (mass/volume) NORMAL NORMAL Urine leukocyte esterase detection by dipstick 1+ NEGATIVE Automated urine sediment erythrocyte count by microscopy (number/high power field) [HPF] NRG Automated urine sediment leukocyte count by microscopy (number/high power field ) [HPF] NRG Bacteria detection in urine sediment by light microscopy MODERATE NRG Squamous epithelial cells detection in urine sediment by light microscopy 25-50 NRG Crystals detection in urine sediment by light microscopy PRESENT NRG Casts detection in urine sediment by light microscopy NONE NRG Mucus detection in urine sediment by light microscopy SMALL NRG Complete urinalysis with reflex to culture NO NRG Amorphous sediment detection in urine sediment by light microscopy RARE NANCY PHOSPHATE NRG Bacterial urine culture - 08/23/16 06:00 URINE CULTURE RESULTS <10,000/ML NRG Complete blood count (CBC) with automated white blood cell (WBC) differential - 08/23/16 06:50 Blood leukocytes automated count (number/volume) 12.0 10*3/uL 4.3-11.0 Blood erythrocytes automated count (number/volume) 3.74 10*6/uL 4.35-5.85 Venous blood hemoglobin measurement (mass/volume) 10.6 g/dL 11.5-16.0 Blood hematocrit (volume fraction) 32 % 35-52 Automated erythrocyte mean corpuscular volume 86 [foz_us] 80-99 Automated erythrocyte mean corpuscular hemoglobin (mass per erythrocyte) 28 pg 25-34 Automated erythrocyte mean corpuscular hemoglobin concentration measurement ( mass/volume) 33 g/dL 32-36 Automated erythrocyte distribution width ratio 13.1 % 10.0-14.5 Automated blood platelet count (count/volume) 339 10*3/uL 130-400 Automated blood platelet mean volume measurement 9.5 [foz_us] 7.4-10.4 Automated blood neutrophils/100 leukocytes 56 % 42-75 Automated blood lymphocytes/100 leukocytes 31 % 12-44 Blood monocytes/100 leukocytes 12 % 0-12 Automated blood eosinophils/100 leukocytes 1 % 0-10 Automated blood basophils/100 leukocytes 0 % 0-10 Blood neutrophils automated count (number/volume) 6.7 10*3 1.8-7.8 Blood lymphocytes automated count (number/volume) 3.7 10*3 1.0-4.0 Blood monocytes automated count (number/volume) 1.5 10*3 0.0-1.0 Automated eosinophil count 0.1 10*3/uL 0.0-0.3 Automated blood basophil count (count/volume) 0.0 10*3/uL 0.0-0.1 RED CELLS LEUKO REDUCED AS1 - 08/23/16 06:50 RED CELLS LEUKO REDUCED AS1 TRANSFUSED 08/24/16 1006 NR Blood type T Indirect antibody screen panel - 08/23/16 06:50 ABO+Rh group AP NRG Transfusion band number [id number] NRG Blood group antibody screen NEGATIVE NRG Automated blood complete blood count (hemogram) panel - 08/23/16 18:41 Blood leukocytes automated count (number/volume) 22.7 10*3/uL 4.3-11.0 Blood erythrocytes automated count (number/volume) 3.08 10*6/uL 4.35-5.85 Venous blood hemoglobin measurement (mass/volume) 8.8 g/dL 11.5-16.0 Blood hematocrit (volume fraction) 27 % 35-52 Automated erythrocyte mean corpuscular volume 87 [foz_us] 80-99 Automated erythrocyte mean corpuscular hemoglobin (mass per erythrocyte) 29 pg 25-34 Automated erythrocyte mean corpuscular hemoglobin concentration measurement ( mass/volume) 33 g/dL 32-36 Automated erythrocyte distribution width ratio 12.9 % 10.0-14.5 Automated blood platelet count (count/volume) 330 10*3/uL 130-400 Automated blood platelet mean volume measurement 10.1 [foz_us] 7.4-10.4 [id number] - 08/23/16 18:41 Prothrombin time (PT) in platelet poor plasma by coagulation assay 14.1 s 12.2-14.7 INR in platelet poor plasma or blood by coagulation assay 1.1 0.8-1.4 Activated partial thromboplastin time (aPTT) in platelet poor plasma bycoagulation assay 23 s 24-35 Fibrin D-dimer FEU measurement in platelet poor plasma (mass/volume) 1.96 ug/mL 0.00-0.49 Fibrinogen measurement in platelet poor plasma by coagulation assay (mass/ volume) 295 mg/dL 221-496 Comprehensive metabolic panel - 08/23/16 18:41 Serum or plasma sodium measurement (moles/volume) 140 mmol/L 135-145 Serum or plasma potassium measurement (moles/volume) 3.4 mmol/L 3.6-5.0 Serum or plasma chloride measurement (moles/volume) 112 mmol/L 98-107 Carbon dioxide 19 mmol/L 21-32 Serum or plasma anion gap determination (moles/volume) 9 mmol/L 5-14 Serum or plasma urea nitrogen measurement (mass/volume) 9 mg/dL 7-18 Serum or plasma creatinine measurement (mass/volume) 0.68 mg/dL 0.60-1.30 Serum or plasma urea nitrogen/creatinine mass ratio 13 NRG Serum or plasma creatinine measurement with calculation of estimated glomerular filtration rate > NRG Serum or plasma glucose measurement (mass/volume) 104 mg/dL 70-105 Serum or plasma calcium measurement (mass/volume) 7.6 mg/dL 8.5-10.1 Serum or plasma total bilirubin measurement (mass/volume) 0.4 mg/dL 0.1-1.0 Serum or plasma alkaline phosphatase measurement (enzymatic activity/volume) 87 U/L 40-136 Serum or plasma aspartate aminotransferase measurement (enzymatic activity/ volume) 11 U/L 5-34 Serum or plasma alanine aminotransferase measurement (enzymatic activity/volume ) < U/L 0-55 Serum or plasma protein measurement (mass/volume) 4.8 g/dL 6.4-8.2 Serum or plasma albumin measurement (mass/volume) 2.4 g/dL 3.2-4.5 Magnesium - 08/23/16 18:41 Magnesium 1.2 mg/dL 1.8-2.4 Serum or plasma troponin i.cardiac measurement (mass/volume) - 08/23/16 18:41 Serum or plasma troponin i.cardiac measurement (mass/volume) < ng/ mL <0.30 Automated blood complete blood count (hemogram) panel - 08/23/16 23:45 Blood leukocytes automated count (number/volume) 14.4 10*3/uL 4.3-11.0 Blood erythrocytes automated count (number/volume) 2.68 10*6/uL 4.35-5.85 Venous blood hemoglobin measurement (mass/volume) 7.7 g/dL 11.5-16.0 Blood hematocrit (volume fraction) 23 % 35-52 Automated erythrocyte mean corpuscular volume 87 [foz_us] 80-99 Automated erythrocyte mean corpuscular hemoglobin (mass per erythrocyte) 29 pg 25-34 Automated erythrocyte mean corpuscular hemoglobin concentration measurement ( mass/volume) 33 g/dL 32-36 Automated erythrocyte distribution width ratio 12.6 % 10.0-14.5 Automated blood platelet count (count/volume) 284 10*3/uL 130-400 Automated blood platelet mean volume measurement 9.6 [foz_us] 7.4-10.4 Complete blood count (CBC) with automated white blood cell (WBC) differential - 08/24/16 06:25 Blood leukocytes automated count (number/volume) 13.7 10*3/uL 4.3-11.0 Blood erythrocytes automated count (number/volume) 2.83 10*6/uL 4.35-5.85 Venous blood hemoglobin measurement (mass/volume) 7.9 g/dL 11.5-16.0 Blood hematocrit (volume fraction) 25 % 35-52 Automated erythrocyte mean corpuscular volume 88 [foz_us] 80-99 Automated erythrocyte mean corpuscular hemoglobin (mass per erythrocyte) 28 pg 25-34 Automated erythrocyte mean corpuscular hemoglobin concentration measurement ( mass/volume) 32 g/dL 32-36 Automated erythrocyte distribution width ratio 12.9 % 10.0-14.5 Automated blood platelet count (count/volume) 285 10*3/uL 130-400 Automated blood platelet mean volume measurement 10.0 [foz_us] 7.4-10.4 Automated blood neutrophils/100 leukocytes 62 % 42-75 Automated blood lymphocytes/100 leukocytes 27 % 12-44 Blood monocytes/100 leukocytes 9 % 0-12 Automated blood eosinophils/100 leukocytes 1 % 0-10 Automated blood basophils/100 leukocytes 0 % 0-10 Blood neutrophils automated count (number/volume) 8.5 10*3 1.8-7.8 Blood lymphocytes automated count (number/volume) 3.7 10*3 1.0-4.0 Blood monocytes automated count (number/volume) 1.3 10*3 0.0-1.0 Automated eosinophil count 0.2 10*3/uL 0.0-0.3 Automated blood basophil count (count/volume) 0.0 10*3/uL 0.0-0.1 Complete blood count (CBC) with automated white blood cell (WBC) differential - 08/25/16 05:52 Blood leukocytes automated count (number/volume) 10.7 10*3/uL 4.3-11.0 Blood erythrocytes automated count (number/volume) 3.22 10*6/uL 4.35-5.85 Venous blood hemoglobin measurement (mass/volume) 9.3 g/dL 11.5-16.0 Blood hematocrit (volume fraction) 28 % 35-52 Automated erythrocyte mean corpuscular volume 86 [foz_us] 80-99 Automated erythrocyte mean corpuscular hemoglobin (mass per erythrocyte) 29 pg 25-34 Automated erythrocyte mean corpuscular hemoglobin concentration measurement ( mass/volume) 34 g/dL 32-36 Automated erythrocyte distribution width ratio 14.1 % 10.0-14.5 Automated blood platelet count (count/volume) 270 10*3/uL 130-400 Automated blood platelet mean volume measurement 9.6 [foz_us] 7.4-10.4 Automated blood neutrophils/100 leukocytes 52 % 42-75 Automated blood lymphocytes/100 leukocytes 36 % 12-44 Blood monocytes/100 leukocytes 10 % 0-12 Automated blood eosinophils/100 leukocytes 2 % 0-10 Automated blood basophils/100 leukocytes 0 % 0-10 Blood neutrophils automated count (number/volume) 5.5 10*3 1.8-7.8 Blood lymphocytes automated count (number/volume) 3.8 10*3 1.0-4.0 Blood monocytes automated count (number/volume) 1.1 10*3 0.0-1.0 Automated eosinophil count 0.2 10*3/uL 0.0-0.3 Automated blood basophil count (count/volume) 0.0 10*3/uL 0.0-0.1 Complete blood count (CBC) with automated white blood cell (WBC) differential - 08/26/16 20:11 Blood leukocytes automated count (number/volume) 9.3 10*3/uL 4.3-11.0 Blood erythrocytes automated count (number/volume) 3.38 10*6/uL 4.35-5.85 Venous blood hemoglobin measurement (mass/volume) 9.8 g/dL 11.5-16.0 Blood hematocrit (volume fraction) 29 % 35-52 Automated erythrocyte mean corpuscular volume 87 [foz_us] 80-99 Automated erythrocyte mean corpuscular hemoglobin (mass per erythrocyte) 29 pg 25-34 Automated erythrocyte mean corpuscular hemoglobin concentration measurement ( mass/volume) 33 g/dL 32-36 Automated erythrocyte distribution width ratio 14.2 % 10.0-14.5 Automated blood platelet count (count/volume) 373 10*3/uL 130-400 Automated blood platelet mean volume measurement 9.4 [foz_us] 7.4-10.4 Automated blood neutrophils/100 leukocytes 50 % 42-75 Automated blood lymphocytes/100 leukocytes 37 % 12-44 Blood monocytes/100 leukocytes 9 % 0-12 Automated blood eosinophils/100 leukocytes 4 % 0-10 Automated blood basophils/100 leukocytes 0 % 0-10 Blood neutrophils automated count (number/volume) 4.7 10*3 1.8-7.8 Blood lymphocytes automated count (number/volume) 3.4 10*3 1.0-4.0 Blood monocytes automated count (number/volume) 0.9 10*3 0.0-1.0 Automated eosinophil count 0.4 10*3/uL 0.0-0.3 Automated blood basophil count (count/volume) 0.0 10*3/uL 0.0-0.1 Comprehensive metabolic panel - 08/26/16 20:11 Serum or plasma sodium measurement (moles/volume) 143 mmol/L 135-145 Serum or plasma potassium measurement (moles/volume) 3.6 mmol/L 3.6-5.0 Serum or plasma chloride measurement (moles/volume) 111 mmol/L 98-107 Carbon dioxide 21 mmol/L 21-32 Serum or plasma anion gap determination (moles/volume) 11 mmol/L 5-14 Serum or plasma urea nitrogen measurement (mass/volume) 12 mg/dL 7-18 Serum or plasma creatinine measurement (mass/volume) 0.70 mg/dL 0.60-1.30 Serum or plasma urea nitrogen/creatinine mass ratio 17 NRG Serum or plasma creatinine measurement with calculation of estimated glomerular filtration rate > NRG Serum or plasma glucose measurement (mass/volume) 107 mg/dL 70-105 Serum or plasma calcium measurement (mass/volume) 8.8 mg/dL 8.5-10.1 Serum or plasma total bilirubin measurement (mass/volume) 0.2 mg/dL 0.1-1.0 Serum or plasma alkaline phosphatase measurement (enzymatic activity/volume) 78 U/L 40-136 Serum or plasma aspartate aminotransferase measurement (enzymatic activity/ volume) 23 U/L 5-34 Serum or plasma alanine aminotransferase measurement (enzymatic activity/volume ) 14 U/L 0-55 Serum or plasma protein measurement (mass/volume) 5.7 g/dL 6.4-8.2 Serum or plasma albumin measurement (mass/volume) 2.9 g/dL 3.2-4.5 Serum or plasma uric acid measurement (mass/volume) - 08/26/16 20:11 Serum or plasma uric acid measurement (mass/volume) 5.1 mg/dL 2.6-7.2 Lactate dehydrogenase 1 [enzymatic activity/volume] in serum or plasma - 20:11 Lactate dehydrogenase 1 [enzymatic activity/volume] in serum or plasma 161 U/L 125-220 Complete urinalysis with reflex to culture - 08/26/16 21:07 Urine color determination YELLOW NRG Urine clarity determination SLIGHTLY CLOUDY NRG Urine pH measurement by test strip 6 5-9 Specific gravity of urine by test strip 1.020 1.016- 1.022 Urine protein assay by test strip, semi-quantitative 1+ NEGATIVE Urine glucose detection by automated test strip NEGATIVE NEGATIVE Erythrocytes detection in urine sediment by light microscopy 5+ NEGATIVE Urine ketones detection by automated test strip NEGATIVE NEGATIVE Urine nitrite detection by test strip NEGATIVE NEGATIVE Urine total bilirubin detection by test strip NEGATIVE NEGATIVE Urine urobilinogen measurement by automated test strip (mass/volume) NORMAL NORMAL Urine leukocyte esterase detection by dipstick 3+ NEGATIVE Automated urine sediment erythrocyte count by microscopy (number/high power field) TNTC NRG Automated urine sediment leukocyte count by microscopy (number/high power field ) [HPF] NRG Bacteria detection in urine sediment by light microscopy FEW NRG Squamous epithelial cells detection in urine sediment by light microscopy 25-50 NRG Crystals detection in urine sediment by light microscopy NONE NRG Casts detection in urine sediment by light microscopy NONE NRG Mucus detection in urine sediment by light microscopy NEGATIVE NRG Complete urinalysis with reflex to culture YES NRG Bacterial urine culture - 08/26/16 21:07 Bacterial urine culture [id number] NRG COLONY COUNT >100,000/ML NRG URINE CULTURE RESULTS PLUS NRG Encounters ACCT No. Visit Date/Time Discharge Status Pt. Type Provider Facility Loc./Unit Complaint [id number] 08/06/2012 14:09:00 08/06/2012 23:59:59 CLS Outpatient [id number] 07/11/2012 15:30:00 07/11/2012 23:59:59 CLS Outpatient [id number] 07/04/2012 15:37:00 07/04/2012 23:59:59 CLS Outpatient [id number] 06/27/2012 14:39:00 06/27/2012 23:59:59 CLS Outpatient [id number] 06/20/2012 14:41:00 06/20/2012 23:59:59 CLS Outpatient CAILIN MILIAN DO [id number] 06/04/2012 13:53:00 06/04/2012 23:59:59 CLS Outpatient [id number] 05/21/2012 15:00:00 05/21/2012 23:59:59 CLS Outpatient [id number] 05/10/2012 14:57:00 05/10/2012 23:59:59 CLS Outpatient [id number] 04/25/2012 15:17:00 04/25/2012 23:59:59 [place] [id number] 03/12/2012 15:17:00 03/12/2012 23:59:59 CLS Outpatient CAILIN MILIAN DO Seven [id number] 01/26/2013 09:32:00 Document Registration [id number] 12/11/2017 16:16:00 12/11/2017 23:59:59 CLS Preadmit CALLIE DOBSON MD [facility] RAD HEPATIC CYST [id number] 11/10/2017 10:15:00 11/10/2017 23:59:59 CLS Outpatient CALLIE DOBSON MD [facility] RAD RT URET STONE, LT NEPHRO [id number] 11/08/2017 10:45:00 11/08/2017 23:59:59 CLS Preadmit CALLIE DOBSON MD [facility] RAD RIGHT URET STONE,LT NEPHRO [id number] 11/14/2016 11:15:00 11/14/2016 23:59:59 CLS Preadmit CHECO FRAGOSO DO [facility] RAD ENCOUNTER FOR SUPERVISION OF MULTIGRAVIDA OF ADVAN [id number] 08/15/2016 10:46:00 11/13/2016 00:01:00 DIS Outpatient CHECO FRAGOSO DO [facility] RAD ENCOUNTER FOR SUPERVISION OF MULTIGRAVIDA OF ADVAN [id number] 08/26/2016 19:53:00 08/26/2016 21:42:00 DIS Emergency TYSHAWN JAMES MD [facility] ER L LEG SWELLING/PAIN [id number] 08/23/2016 05:58:00 08/25/2016 16:21:00 DIS Inpatient CHECO FRAGOSO DO [facility] LDRP INDUCTION [id number] 08/01/2016 14:44:00 08/01/2016 23:59:59 CLS Outpatient CHECO FRAGOSO DO [facility] RAD SURVEY [id number] 01/07/2014 06:00:00 01/07/2014 23:59:59 CLS Outpatient CHECO FRAGOSO DO [facility] COMPLEX RIGHT ADENXAL CYST; CHRONIC PELVIC PAIN [id number] 01/06/2014 09:15:00 01/06/2014 23:59:59 CLS Outpatient CHECO FRAGOSO DO [facility] PREOP COMPLEX RIGHT ADNEXAL CYST W/CHRONIC PELVIC PAIN [id number] 11/26/2012 11:58:00 11/26/2012 23:59:59 CLS Outpatient KORY GOLDMAN [facility] RAD PELVIC PAIN [id number] 12/27/2017 09:00:00 PEN Preadmit OLYA TRAYLOR, CALLIE Maynard [facility] BILAT RENAL STONES [id number] 07/16/2012 05:37:00 Document Registration [id number] 07/01/2012 19:45:00 Document Registration [id number] 05/09/2012 14:15:00 Document Registration [id number] 04/25/2012 10:15:00 Document Registration [id number] 03/14/2012 10:35:00 Document Registration [id number] 01/11/2012 09:27:00 Document Registration
[2017-12-27] MEDS ORDERED: LACTATED RINGERS 1,000 ML IV PRN (08:46)
[2017-12-27 09:00] VITALS: BP 104/77
[2017-12-27] MEDS ORDERED: cefTRIAXone INJECTION 1,000 MG in NS (IVPB) 50 ML IV ONE (09:00)
--- NOTE | 2017-12-27 09:19 | Progress Note-Pre Operative ---
Pre-Operative Progress Note H&P Reviewed The H&P was reviewed, patient examined and no changes noted. Date Seen by Provider: Dec 27, 2017 Time Seen by Provider: 09:19 Date H&P Reviewed: Dec 27, 2017 Time H&P Reviewed: 09:19 Pre-Operative Diagnosis: LT RENAL STONE CALLIE DOBSON MD Dec 27, 2017 9:19 am
--- NOTE | 2017-12-27 09:39 | Diagnostic Imaging Report ---
CLINICAL INDICATION: Patient with bilateral renal stones. Preop left ESWL. EXAM: KUB x-ray. COMPARISON: KUB x-ray dated 11/10/2017. FINDINGS AND IMPRESSION: 1: Stable 10 mm calcification overlying the left renal shadow region likely consistent with left nephrolithiasis. 2: There is a 3 mm calcification in the lateral left pelvis region which is stable. Soft tissue calcification may be considered. Stone in the distal left ureter cannot be completely excluded. There is no other area concerning for urinary tract stone. 3: There is a nonobstructed bowel gas pattern. There is no evidence of abdominal free air. 4: The visualized bones and extra abdominal soft tissues are unremarkable. Dictated by: Dictated on workstation # [id number]
[2017-12-27] MEDS ORDERED: CATHETER FLUSH 10 ML SYR IV PRN (09:45)
[2017-12-27] MEDS ORDERED: fentaNYL INJECTION 100 MCG/2 ML AMP ONE (11:01)
[2017-12-27] MEDS ORDERED: MIDAZOLAM 2 MG/2 ML (VERSED) VIAL ONE (11:01)
[2017-12-27] MEDS ORDERED: ONDANSETRON 4 MG/2 ML (SDV) Z0FRAN ONE (11:11)
[2017-12-27] MEDS ORDERED: DEXAMETHASONE 10 MG/ML (DECADRON) 1 ML VIAL ONE (11:11)
[2017-12-27] MEDS ORDERED: LIDOCAINE PF 2% 5 ML (XYLOCAINE) VIAL ONE (11:11)
[2017-12-27] MEDS ORDERED: KETOROLAC 30 MG/ML VIAL ONE (11:11)
[2017-12-27] MEDS ORDERED: SEVOFLURANE (ULTANE) 15 ML INHAL SOLN ONE (11:11)
[2017-12-27] MEDS ORDERED: PROPOFOL INJECTION 50 ML IV ONE (11:11)
[2017-12-27] MEDS ORDERED: FUROSEMIDE 40 MG/4 ML INJ (LASIX) ONE (11:11)
--- NOTE | 2017-12-27 11:17 | Progress Note-Post Operative ---
Post-Operative Progess Note Surgeon (s)/Parts Identification Technician (s) Surgeon CALLIE DOBSON MD Parts Identification Technician: N/A Pre-Operative Diagnosis LT RENAL STONE Post-Operative Diagnosis SAME Procedure & Operative Findings Date of Procedure 12/27/17 Procedure Performed/Findings LT ESWL Anesthesia Type GENERAL Estimated Blood Loss Estimated blood loss (mL): N/A Specimens/Packing Specimens Removed N/A Packing: N/A CALLIE DOBSON MD Dec 27, 2017 11:17 am
--- NOTE | 2017-12-27 11:20 | Discharge Inst-Urology ---
Discharge Inst-Urology Discharge Medications New, Converted, or Re-newed RX: RX on Chart Patient Instructions/Follow Up Plan Please make appointment to been seen in office in 3 weeks, KUB prior to it KUB on way home Post ESWL instructions Increase oral fluids for 48 hours and then as needed. Diet and Activity as tolerated. If questions or concerns contact your physician Or seek help at emergency department. CALLIE DOBSON MD Dec 27, 2017 11:20 am
[2017-12-27] MEDS ORDERED: MEPERIDINE (DEMEROL) INJ 50 MG/ML IVP PRN (12:00)
[2017-12-27] MEDS ORDERED: morphine INJ 10 MG/ML 1ML (SYR OR VIAL) IVP PRN (12:00)
[2017-12-27] MEDS ORDERED: ONDANSETRON 4 MG/2 ML (SDV) Z0FRAN IVP PRN (12:00)
[2017-12-27 12:46] VITALS: BP 111/82
[2017-12-27] MEDS ORDERED: NITR-65 PO (12:51)
[2017-12-27] MEDS ORDERED: TAMS0.4C98 PO (12:51)
[2017-12-27] MEDS ORDERED: HYDR-3870 PO (12:51)
[2017-12-27 13:15] VITALS: BP 93/68
[2017-12-27 13:35] VITALS: BP 105/72
--- NOTE | 2017-12-27 14:56 | Anesthesia-General Post-Op ---
General Patient Condition Mental Status/LOC: Same as Preop Cardiovascular: Satisfactory Nausea/Vomiting: Absent Respiratory: Satisfactory Pain: Controlled Complications: Absent Post Op Complications Complications None Follow Up Care/Instructions Patient Instructions None needed. Anesthesia/Patient Condition Patient Condition Patient is doing well, no complaints, stable vital signs, no apparent adverse anesthesia problems. No complications reported per nursing. ROJELIO LORD CRNA Dec 27, 2017 14:56
--- NOTE | 2017-12-27 15:20 | Diagnostic Imaging Report ---
Indication: Status post lithotripsy. Time of exam: 1:35 PM Correlation is made with prior study earlier same day. There has been fragmentation of the large calculus located in the left kidney since earlier today, status post lithotripsy. Previously seen left pelvic calcification is stable. No right-sided calculi are seen. Impression: Fragmentation of the lateral left renal calculus, status post lithotripsy. Dictated by: Dictated on workstation # [id number]
--- NOTE | 2017-12-27 19:14 | OPERATIVE REPORT ---
DATE OF SERVICE: 12/27/2017 PREOPERATIVE DIAGNOSIS: Left renal stone. POSTOPERATIVE DIAGNOSIS: Left renal stone. OPERATION PERFORMED: Left ESWL. SURGEON: Leonid Dobson MD ANESTHESIA: General. COMPLICATIONS: None. DESCRIPTION OF PROCEDURE: Under satisfactory general anesthesia with the patient in supine position on the ESWL table, the left renal stone was localized. Shocks were delivered at kV of 4. A total of 3000 shocks completely fragmented the stone. The patient received 30 mg of Toradol and 40 mg of Lasix IV at the end of the procedure. She tolerated the procedure and anesthesia well and was sent to recovery room in stable condition. Job ID: [id number] DocumentID: [id number] Dictated Date: 12/27/2017 11:27:47 Demand Inspector Date: 12/27/2017 19:13:31 Dictated By: LEONID DOBSON MD
== END 2017-12-27 13:35 | disposition home or self-care (01) ==
LOC: SDC 08:36
PROVIDERS: ATTEND Urology
DX: N20.0 Calculus of kidney (principal); Z11.2 Encounter for screening for other bacterial diseases; I10 Essential (primary) hypertension; M79.7 Fibromyalgia; K21.9 Gastro-esophageal reflux disease without esophagitis; F41.9 Anxiety disorder, unspecified
CPT/HCPCS: 74018; 84703; 87081

== ENCOUNTER → 2019-03-25 | Outpatient (CLI) | payer BC ==
[~2019-03-25] MED LIST changes: +CATHETER FLUSH 10 ML SYR IV PRN; +HYDR-3870 PO; +NITR-65 PO; +TAMS0.4C98 PO
[2019-03-25 09:55] LABS: ALBUMIN 4.1 GM/DL (3.2-4.5); BILIRUBIN,DIRECT 0.2 MG/DL (0.0-0.3); BILIRUBIN,INDIRECT 0.3 MG/DL; BILIRUBIN,TOTAL 0.5 MG/DL (0.1-1.0); TOTAL PROTEIN 7.1 GM/DL (6.4-8.2)
--- NOTE | 2019-03-25 12:24 | Diagnostic Imaging Report ---
INDICATION: Abdominal pain. TECHNIQUE: The patient was administered 5.4 mCi of technetium 99m Choletec intravenously and imaging over the abdomen was performed. After 60 minutes, the patient ingested one can of Ensure and a gallbladder ejection fraction was calculated. FINDINGS: There is homogeneous uptake of activity by the liver. Prompt excretion of activity into the gallbladder and common bile duct is noted. There is normal passage of activity into the small bowel. The gallbladder ejection fraction is normal at 45%. IMPRESSION: Normal HIDA scan and gallbladder ejection fraction. Dictated by: Dictated on workstation # [id number]
== END ==
LOC: CARD 09:17
PROVIDERS: ATTEND Surgery
DX: R10.9 Unspecified abdominal pain (principal); R74.8 Abnormal levels of other serum enzymes
CPT/HCPCS: 36415; 78227; 80076